=== PATIENT | female | born 1955 | race Caucasian/White ===

== ENCOUNTER → 2016-10-26 | Outpatient (CLI) | payer BC ==
--- NOTE | 2016-10-26 08:53 | MM ---
Reason for exam: follow-up at short interval from prior study. Last mammogram was performed 6 months ago. History: Patient is postmenopausal and is nulliparous. Benign MG stereo VAD BX LT of the left breast, May 08, 2016. Excisional biopsy of the right breast. Physical Findings: Nurse did not find any significant physical abnormalities on exam. MG Diagnostic Mammo LT w CAD CC, MLO, and ML view(s) were taken of the left breast. Prior study comparison: April 28, 2016, left breast MG work up mamm w CAD LT. April 25, 2016, bilateral MG screening mammo w CAD. April 09, 2015, bilateral MG screening mammo w CAD. The breast tissue is heterogeneously dense. This may lower the sensitivity of mammography. Finding: There are typically benign dystrophic, round calcifications in the left breast. Previous mammotome biopsy in the left breast x 2. There is no discrete abnormality. These results were verbally communicated with the patient and result sheet given to the patient on 10/26/16. ASSESSMENT: Benign, BI-RAD 2 RECOMMENDATION: Return to routine screening mammogram schedule for both breasts. Back on schedule.
== END | disposition home or self-care (01) ==
LOC: RADMAMWWP 08:12
PROVIDERS: ATTEND Surgery
DX: R92.8 Other abnormal and inconclusive findings on diagnostic imaging of breast (principal)

== ENCOUNTER → 2017-05-02 | Outpatient (CLI) | payer BC ==
--- NOTE | 2017-05-03 13:34 | MM ---
Reason for exam: screening (asymptomatic). Last mammogram was performed 6 months ago. History: Patient is postmenopausal and is nulliparous. Benign MG stereo VAD BX LT of the left breast, May 08, 2016. Excisional biopsy of the right breast. Physical Findings: A clinical breast exam by your physician is recommended on an annual basis and results should be correlated with mammographic findings. MG Screening Mammo w CAD Bilateral CC and MLO view(s) were taken. Prior study comparison: October 26, 2016, left breast MG diagnostic mammo LT w CAD. April 28, 2016, left breast MG work up mamm w CAD LT. April 25, 2016, bilateral MG screening mammo w CAD. The breast tissue is extremely dense which could obscure a lesion on mammography. No suspicious abnormality. Post biopsy change central slightly lateral left breast. No significant changes when compared with prior studies. ASSESSMENT: Benign, BI-RAD 2 RECOMMENDATION: Routine screening mammogram of both breasts in 1 year.
== END | disposition home or self-care (01) ==
LOC: RADMAMWWP 08:11
PROVIDERS: ATTEND Family Medicine
DX: Z12.31 Encounter for screening mammogram for malignant neoplasm of breast (principal)

== ENCOUNTER → 2018-05-14 | Outpatient (CLI) | payer BC ==
--- NOTE | 2018-05-15 13:05 | MM ---
Reason for exam: screening (asymptomatic). Last mammogram was performed 1 year ago. History: Patient is postmenopausal and is nulliparous. Benign MG stereo VAD BX LT of the left breast, May 08, 2016. Excisional biopsy of the right breast. Physical Findings: A clinical breast exam by your physician is recommended on an annual basis and results should be correlated with mammographic findings. MG Screening Mammo w CAD Bilateral CC and MLO view(s) were taken. Prior study comparison: May 02, 2017, bilateral MG screening mammo w CAD. October 26, 2016, left breast MG diagnostic mammo LT w CAD. The breast tissue is heterogeneously dense. This may lower the sensitivity of mammography. Stable benign calcifications. There is no discrete abnormality. No significant changes when compared with prior studies. ASSESSMENT: Benign, BI-RAD 2 RECOMMENDATION: Routine screening mammogram of both breasts in 1 year.
== END | disposition home or self-care (01) ==
LOC: RADMAMWWP 08:11
PROVIDERS: ATTEND Family Medicine
DX: Z12.31 Encounter for screening mammogram for malignant neoplasm of breast (principal)
CPT/HCPCS: 77067

== ENCOUNTER → 2019-05-21 | Outpatient (CLI) | payer BC ==
--- NOTE | 2019-05-21 09:24 | BD ---
EXAMINATION TYPE: Axial Bone Density DATE OF EXAM: 05/21/2019 COMPARISON: 2016 CLINICAL HISTORY: M 85.0 Height: 5 FT 2 1/4 IN Weight: 136 FRAX RISK QUESTIONS: Secondary Osteoporosis: Rheumatoid Arthritis: YES Current Tobacco Use: YES RISK FACTORS HISTORY OF: Active: YES Postmenopausal woman: AGE 53 MEDICATIONS: Additional Medications: CALTRATE, TOLTERODINE, ASPIRIN, LUNESTA, Additional History: EXAM MEASUREMENTS: Bone mineral densitometry was performed using the [email or web address] System. Bone mineral density as measured about the Lumbar spine is: ----- L1-L4(G/cm2): 1.253 T Score Values are as follows: ----- L2: -0.4 ----- L3: 1.3 ----- L4: 1.3 ----- L1-L4: 0.6 Bone mineral density has: INCREASED 7.1 % since study of: 2016 Bone mineral density about the R hip (g/cm2): 0.934 Bone mineral density about the L hip (g/cm2): 0.987 T Score values are as follows: -----R Neck: -0.7 -----L Neck: -0.4 -----R Total: -0.5 -----L Total: -0.3 Bone mineral density has: DECREASED -4.6 % since study of: 2016 IMPRESSION: Normal (Values between +1 and -1 indicate normal bone mass). Consider repeating this study in 5 year s or sooner if there is some new clinical indication. NOTE: T-SCORE=SD OF THE YOUNG ADULT MEAN.
--- NOTE | 2019-05-22 14:09 | MM ---
Reason for exam: screening (asymptomatic). Last mammogram was performed 1 year ago. History: Patient is postmenopausal and is nulliparous. Benign MG stereo VAD BX LT of the left breast, May 08, 2016. Excisional biopsy of the right breast. Physical Findings: A clinical breast exam by your physician is recommended on an annual basis and results should be correlated with mammographic findings. MG Screening Mammo w CAD Bilateral CC and MLO view(s) were taken. Prior study comparison: May 14, 2018, bilateral MG screening mammo w CAD. May 02, 2017, bilateral MG screening mammo w CAD. The breast tissue is heterogeneously dense. This may lower the sensitivity of mammography. Benign appearing bilateral calcifications. Right lateral asymmetry 6cm from nipple. Left biopsy markers noted. ASSESSMENT: Incomplete: need additional imaging evaluation, BI-RAD 0 RECOMMENDATION: Special view mammogram of the right breast. If lesion persists on supplemental views, image directed ultrasound is recommended. [facility] will attempt to contact patient to return for supplemental views and ultrasound if indicated.
== END | disposition home or self-care (01) ==
LOC: RADMAMWWP 08:20
PROVIDERS: ATTEND Family Medicine
DX: Z12.31 Encounter for screening mammogram for malignant neoplasm of breast (principal); M85.80 Other specified disorders of bone density and structure, unspecified site
CPT/HCPCS: 77067; 77080

== ENCOUNTER → 2019-06-09 | Outpatient (CLI) | payer BC ==
--- NOTE | 2019-06-09 09:57 | MM ---
Reason for exam: additional evaluation requested from abnormal screening. Last mammogram was performed 1 month ago. History: Patient is postmenopausal and is nulliparous. Benign MG stereo VAD BX LT of the left breast, May 08, 2016. Excisional biopsy of the right breast, 1991. Physical Findings: Nurse did not find any significant physical abnormalities on exam. MG Work Up Mamm w CAD RT Spot compression CC and LM view(s) were taken of the right breast. Prior study comparison: May 21, 2019, bilateral MG screening mammo w CAD. May 14, 2018, bilateral MG screening mammo w CAD. The breast tissue is heterogeneously dense. This may lower the sensitivity of mammography. Asymmetric density laterally at a middle depth incompletely disperses. Ultrasound recommended. These results were verbally communicated with the patient and result sheet given to the patient on 06/09/19. ASSESSMENT: Incomplete: need additional imaging evaluation, BI-RAD 0 RECOMMENDATION: Ultrasound of the right breast. (5-11 o'clock)
--- NOTE | 2019-06-09 09:58 | USB ---
Reason for exam: additional evaluation requested from abnormal screening. History: Patient is postmenopausal and is nulliparous. Benign MG stereo VAD BX LT of the left breast, May 08, 2016. Excisional biopsy of the right breast, 1991. US Breast Workup Limited RT Right limited breast ultrasound including focal area of concern, retroareolar and axilla demonstrates a 0.4 x 0.2 x 0.3cm oval, cystic, benign lesion at 6 o'clock. Scanned 5-11 o'clock for the lateral asymmetric density. Dense tissues are noted. These results were verbally communicated with the patient and result sheet given to the patient on 06/09/19. ASSESSMENT: Probably benign, BI-RAD 3 RECOMMENDATION: Follow-up diagnostic mammogram of the right breast in 6 months.
== END | disposition home or self-care (01) ==
LOC: RADMAMWWP 08:35
PROVIDERS: ATTEND Family Medicine
DX: R92.8 Other abnormal and inconclusive findings on diagnostic imaging of breast (principal)
CPT/HCPCS: 77065

== ENCOUNTER → 2019-12-24 | Outpatient (CLI) | payer BC ==
--- NOTE | 2019-12-24 11:24 | FL ---
EXAMINATION TYPE: FL UGI DATE OF EXAM: 12/24/2019 COMPARISON: NONE HISTORY: Epigastric pain. Significant Weight loss over last 2 months. Episodes of nausea and vomitin g. TECHNIQUE: A double contrast UGI study is performed. A total of 0.57 minutes of fluoroscopic time. 7 6 spot images are saved. 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 Underlying scol iosis is present. Exam noted suboptimal as patient has poor tolerance of air crystals causing retching causing suboptim al gaseous distention. Patient also had poor tolerance of contrast. The esophagus shows satisfactory motility and emptying into the stomach. Small sliding-type hiatal hernia. No diverticulum or signific ant focal stricture. Suboptimal evaluation of stomach with mild to moderate diffuse gastric fold prominence. No focal ulce r. Occasional gastroesophageal reflux was seen during real time performance of this study up to dista l one third of the esophagus.. The duodenal bulb, sweep, and proximal small bowel loops are unremarkable. IMPRESSION: Suboptimal study. Mild/moderate diffuse gastritis. Small sliding hiatal hernia with occa sional gastroesophageal reflux.
--- NOTE | 2019-12-24 11:33 | US ---
EXAMINATION TYPE: US abdomen complete DATE OF EXAM: 12/24/2019 COMPARISON: CLINICAL HISTORY: R10.13 EPIGASTRIC PAIN. patient states having unexplained weight loss. EXAM MEASUREMENTS: Liver Length: 15.3 cm Gallbladder Wall: 1.0 cm CBD: 0.4 cm Spleen: 15.3 cm Right Kidney: 11.4 x 4.1 x 4.6 cm Left Kidney: 10.7 x 3.6 x 3.8 cm Pancreas: Appears echogenic Liver: wnl Gallbladder: Wall thickening visualized Evidence for sonographic Alatorre's sign: neg CBD: wnl Spleen: Enlarged Right Kidney: No hydronephrosis or masses seen Left Kidney: Lower pole cortical cystic appearing lesion = 0.7 x 0.8 cm Upper IVC: wnl Abd Aorta: No AAA visualized Two midline structures visualized. 1- superior to pancreatic head, vascular hypoechoic lesion = 3.9 x 2.4 x 0.9 cm. 2- Midline vascular hypoechoic lesion superior to aorta = 5.3 x 1.7 x 2.3 cm The liver is homogenous. The intrahepatic portion of the IVC and proximal abdominal aorta are within normal limits. There is no evidence of shadowing mobile cholelithiasis. Abnormal gallbladder wall t hickening up to 10 mm. Near gallbladder fossa there is vascular lobulated hypoechoic mass measuring 5 .3 cm long axis worrisome for adenopathy. Common bile duct is unremarkable. The visualized portions of the pancreas are homogenous. Suspicious oval hypoechoic lesion near pancreatic head could reflect abnormal adenopathy. The spleen is enlarged at 15.3 cm long axis. Kidneys are symmetric and free of hydronephrosis. No renal lesions are seen. IMPRESSION: Splenomegaly is present. Suspicious masses possible abdominal adenopathy. Abnormal gallbl adder with wall thickening. Gallbladder carcinoma not excluded. Advise further investigation with con trast-enhanced CT abdomen and pelvis study. Advise surgical referral.
== END | disposition home or self-care (01) ==
LOC: RADUSWWP 09:14
PROVIDERS: ATTEND Family Medicine
DX: K29.70 Gastritis, unspecified, without bleeding (principal); K44.9 Diaphragmatic hernia without obstruction or gangrene; R16.1 Splenomegaly, not elsewhere classified; K82.8 Other specified diseases of gallbladder
CPT/HCPCS: 74240; 76700

== ENCOUNTER → 2019-12-26 | Outpatient (CLI) | payer BC ==
--- NOTE | 2019-12-26 12:45 | CT ---
EXAMINATION TYPE: CT abdomen pelvis w con DATE OF EXAM: 12/26/2019 HISTORY: Abdominal mass CT DLP: 391.00mGycm Automated Exposure Control for Dose Reduction was Utilized. CONTRAST: CT scan of the abdomen and pelvis is performed with IV Contrast, patient injected with 100 ml mL of I sovue 300. COMPARISON: Abdominal ultrasound dated 12/24/2019 FINDINGS: LUNG BASES: Reticular fibrotic changes are seen at the lung bases that are peripherally oriented, rig ht greater than left. Spiculated density in the lingula is contiguous with the pleural surface on cor onal images and appears as atelectasis. LIVER/GB: There is slight decreased attenuation of the liver in comparison to that of the spleen wayne jareth this is not meet criteria for hepatic steatosis. The liver is prominent in size overall. Peripher ally radiopaque oval structure appears as a centrally hypoattenuating calculus in the gallbladder how ever this does appear elongated towards the gallbladder neck and cystic duct and in combination with the prior ultrasound findings and less likely consideration is for partially contracted gallbladder a nd severe pericholecystic fluid. Correlation with serum laboratory values, surgical consultation is s uggested on the prior ultrasound, and correlation with physical exam is recommended. HIDA scan could also be considered. PANCREAS: No significant abnormality is seen. SPLEEN: The spleen is enlarged measuring 15.0 cm in craniocaudal dimension. There are a few benign ca lcified granulomas within the splenic parenchyma and a hypoattenuated too small to accurately charact erize lesion on series 3 image 28. ADRENALS: No significant abnormality is seen. KIDNEYS: The kidneys enhance and excrete symmetrically without hydronephrosis. Delayed images demonst rate a left renal 1.1 cm lesion that is longer than wide and too small to characterize given ovoid mo rphology. On the abdominal ultrasound of 48 appeared cystic. Incidentally noted retroaortic left nallely l vein. BOWEL: High density seen within numerous sigmoid diverticula and collected within the appendix as wel l as the cecum creating spray artifact from the recent upper GI. LYMPH NODES: Abnormal adenopathy is seen throughout the abdomen. The largest lymph nodes are periaort ic and portacaval measuring up to 1.5 and 1.7 cm in short axis respectively. These are best appreciat ed on coronal image 31 in the periaortic region. Adenopathy continues along the retroperitoneum into the high pelvis with abnormal lymph nodes surrounding the common iliac arteries on image 47. No abnor mal superficial inguinal adenopathy. OSSEOUS STRUCTURES: Indeterminant right femoral neck lesion measures 1.0 cm. Mild to moderate degener ative change of the spine and right hip. Mild degenerative change of the left hip. IMPRESSION: 1.Compilation of findings that should be considered lymphoma until proven otherwise. Appropriate labo ratory testing and consideration for percutaneous biopsy are recommended. 2. Atypical appearance of the gallbladder. Described above findings could represent simply cholelithi asis or severe pericholecystic fluid. No inflammatory change seen in the right upper quadrant. Again surgical consultation is recommended. If clinical findings are equivocal HIDA scan would be recommend ed. Findings #1 and #[address] Lopes on 12/26/[address] Jackson at 1239pm. 3. Indeterminate right femoral sclerotic lesion measuring 1.0 cm.
== END | disposition home or self-care (01) ==
LOC: RADCTMAIN 09:51
PROVIDERS: ATTEND Family Medicine
DX: R19.00 Intra-abdominal and pelvic swelling, mass and lump, unspecified site (principal)
CPT/HCPCS: 74177; Q9967

== ENCOUNTER → 2020-01-06 | Outpatient (CLI) | payer BC ==
--- NOTE | 2020-01-06 09:08 | CT ---
EXAMINATION TYPE: CT chest w con DATE OF EXAM: 01/06/2020 COMPARISON: None HISTORY: enlarged lymphnodes, abn CT abd pelvis CT DLP: 148.1 mGycm, Automated exposure control for dose reduction was used. CONTRAST: Performed injected with 100 mL of Isovue 300. TECHNIQUE: Axial images were obtained at 5 mm thick sections. Reconstructed images are reviewed on [facility] computer in the coronal plane. FINDINGS: Portion of the thyroid visualized is normal. There is a 0.3 cm calcification medial left apex compatible small calcified granuloma. Additional 0.3 cm transverse dimension calcification is in the right perihilar region. There is peripheral based ca lcification measuring 0.2 cm in the superior segment right lower lobe. Some infiltrate is at the ling ular base. No enlarged mediastinal or hilar adenopathy is evident. There are scattered small shotty lymph node s present in the pretracheal space. Some calcified lymphadenopathies in the subcarinal region and pre tracheal space. The ascending aorta diameter at the level of the main pulmonary artery is 3.5 cm. Th e main pulmonary artery diameter at the bifurcation is 2.[address] sections are obtained through the upper abdomen. Some mild fatty infiltration liver may be present. A 0.4 cm retrocrural lymph node is present. There may be some adenopathy within the periaor tic and retrocaval regions only partially visualized on [id number]. No suspicious axillary adenopa thy is evident. There are small axillary nodes present bilaterally. IMPRESSIONS: 1. There are scattered small amount bulge present although no enlarged lymphadenopathy within the pao st is evident. Enlarged lymphadenopathy remains present within the [id number] within the upper abd omen, please see 12/26/2019 CT abdomen report. 2. Infiltrate within the lingular base. 3. Calcified lymphadenopathy within the mediastinum as well as a few small calcified nodules within t lung vasquez discussed above
== END | disposition home or self-care (01) ==
LOC: RADCTMAIN 07:56
PROVIDERS: ATTEND Internal Medicine Hematology & Oncology
DX: R91.8 Other nonspecific abnormal finding of lung field (principal); R91.1 Solitary pulmonary nodule; R59.0 Localized enlarged lymph nodes
CPT/HCPCS: 71260; Q9967

== ENCOUNTER → 2020-01-09 | Outpatient (CLI) | payer BC ==
--- NOTE | 2020-01-12 11:40 | PE ---
EXAMINATION TYPE: PET CT fusion skull to thigh DATE OF EXAM: 01/09/2020 COMPARISON: CT chest 01/06/2020 Prior PET/CT: None HISTORY: Solitary pulmonary nodule, lymphadenopathy. TECHNIQUE: Following the intravenous administration of 12.08 mCi of F-18 FDG, whole body images are performed from the skull base to the midthigh. Images are reviewed on the computer in the coronal, a xial, and sagittal planes. Reconstructed rotating images are created on independent workstation and reviewed on the computer. A localization and attenuation correction CT is performed in conjunction with the PET scan. DLP: 232.10 mGycm SCAN: Initial Blood glucose: 125 mg/dL Average Mediastinum SUV: 0.84 Average Liver SUV: 2.12 FINDINGS: NECK: There is focal radiotracer accumulation within the prevertebral space near the level of the to edison tubarius. This has an SUV value of 5.84. Direct visualization is recommended posterior nasopharyn x. There is focal radiotracer accumulation within the left and right neck, head image 35. On the right t his has an SUV value 1.36 and on the left this has an SUV value 1.18. This could be some laboratory c hange. There are scattered additional punctate areas of uptake, example images 41, left 1.32 SUV, rig ht 1.84 and slightly more posterior lateral 1.33. These are intermediate and could be inflammatory ch lupe. There is a focus of radiotracer accumulation within the left supraclavicular region with an SUV value of 3.57 suspicious for metastatic lymph node. Just anterior and slightly more inferior, image 55, is a focus of radiotracer measuring 1.64. Posterior lateral to the left lobe of the thyroid are 2 foci of radiotracer accumulation measuring 4.12 and 5.5, image 62. This is suspicious for small metastatic lymph nodes. There is an additional suspicious left axillary lymph node measuring 5.36, image 62. Sm all posterior lateral focus of radiotracer may be a supraclavicular node on the right, image 63, SUV value 1.49. An additional left axillary lymph node is present image 64 with an SUV value of 7.52. THORAX: There is intense radiotracer accumulation in the low left supraclavicular region just lateral to the thyroid with an SUV value of 7.95. An inferior left axillary lymph node on image 65 has an NG V value of 3.87. Soft tissue nodule in the retrocrural pectoralis region image 66 has an SUV value of 2 9. There is a superior mediastinal focus of radiotracer right lateral to the esophagus and posterior to the trachea, image 66 with an SUV value of 3.23. There is an additional focus of radiotracer accumula tion within the left chest wall image 68 measuring 7.39. At least 2 more focal radiotracer accumulati on within the superior mediastinum, image 72 with SUV values of 5.12 normal anterior 4.57. Small focu s of radiotracer accumulation within the right axillary region image 72 has an SUV value 1.6. A pretr acheal lymph node has an SUV value of 5.03, image 78. Additional pretracheal lymphadenopathy is prese nt above the level the dylon, image 91 with an SUV value of 8.3. A right hilar lymph node image 94 m easures 4.86. Subcarinal small lymph node is hyperintense with radiotracer measuring 2.88. Small more subtle left hilar lymph nodes measuring 1.17 and more posterior 1.74 image 95 are present. Small foc us of radiotracer may be in the right suprahilar region image 95 measuring 1.69. Infrahilar uptake is present bilaterally, image 101 SUV values are low measuring 0.6, 821.56 on the right and 1.19- 2.07 on the left. Posterior to the descending thoracic aorta is a focus of radiotracer accumulation measur ing 2.16 image 101. There is a larger focus of radiotracer between the descending thoracic aorta in t he vertebral body posterior to the descending thoracic aorta, image 108 with an SUV value of 9.95. Th ere is a focus of radiotracer accumulation within the posterior mediastinal space, image 115 just ant erior to the vertebral body with an SUV value of 7.43. Please also see osseous structures thorax ABDOMEN: There is increased uptake within the spleen diffusely. This may be slightly greater along th e anterior aspect. Abnormal uptake is within retrocrural lymphadenopathy, image 138 with SUV value of 5.35 on the left and 6.29 on the right. Additional periaortic adenopathy within the abdomen has incr eased uptake, image 146 SUV value 6.48 and 5.39. Some retrocaval adenopathy has an SUV value of 5.3. Periaortic adenopathy extends to the bifurcation into the proximal iliac chains. On the right this re radha prominent and somewhat full, image 181 SUV 15.5 on the left this measures 5.37. PELVIS: Proximal iliac chain adenopathy is present, image 187 SUV value of 3.77 far left and 2.93 on the right. More medial uptake is also present within SUV value of 3.2 on the left and 2.69 on the rig ht. Some mild left inguinal uptake may be present measuring 1.15, image 218. There is likely some contamination below the vaginal vault. OSSEOUS STRUCTURES: Within the thorax there are multiple areas of mild increased uptake within ribs a nd sternum suspicious for osseous metastasis. Uptake values however intermediate below SUV [address] LOCALIZATION [address]: Some free fluid is within the pelvis. Significant enlarged lymphadenopathy is not id entified corresponding to the areas of uptake. A few enlarged lymph nodes evident are hyperintense wi th radiotracer. Note is made of cholelithiasis. COMPARISON: Upper abdominal lymphadenopathy appears similar to the comparison. IMPRESSION: 1. Extensive radiotracer accumulation through the areas of lymphadenopathy. Major areas would include Waldeyer's ring in the posterior nasopharynx, bilateral neck greater in the supraclavicular regions, left axillary region, Mediastinum, right paraspinal region lower thoracic area. Extensive adenopathy through the periaortic and retrocaval regions. Increased uptake within the spleen greater in the ant erior aspect. Scattered lymphadenopathy in the pelvis greater in the iliac chain regions proximally. There are additional areas of punctate increased activity within small foci which may be early lympho ma within nonenlarged lymph nodes. These tend to be more intermediate in signal. Some mild increased activity is also present diffusely within the thoracic osseous structures. Lymphoma is favored within the differential.
== END ==
LOC: RADPETMAIN 14:41
PROVIDERS: ATTEND Internal Medicine Hematology & Oncology
DX: R59.0 Localized enlarged lymph nodes (principal); R91.1 Solitary pulmonary nodule
CPT/HCPCS: 78815; A9552

== ENCOUNTER → 2020-01-22 | Outpatient (CLI) | payer MEDICARE ==
--- NOTE | 2020-01-22 12:37 | ECHOF ---
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 This was a technically adequate study. The left ventricular size is normal. Left ventricular wall thickness is normal. Overall left vent ricular systolic function is normal with, an EF between 55 - 60 %. The right ventricle is normal in size. Normal LA size by volume 22+/-6 ml/m2. The right atrium is normal in size. Interatrial and interventricular septum intact. There is mild aortic valve sclerosis. The mitral valve leaflets are mildly thickened. Mild mitral annular calcification present. There is trace mitral regurgitation. Mild tricuspid regurgitation present. Right ventricular systolic pressure is normal at < 35 mmHg. The pulmonic valve was not well visualized. The aortic root size is normal. Normal inferior vena cava with normal inspiratory collapse consistent with estimated right atrial pre ssure of 5 mmHg. There is no pericardial effusion. CONCLUSIONS -------- 1. Resting tachycardia (HR>100bpm). 2. This was a technically adequate study. 3. The left ventricular size is normal. 4. Left ventricular wall thickness is normal. 5. Overall left ventricular systolic function is normal with, an EF between 55 - 60 %. 6. The right ventricle is normal in size. 7. Normal LA size by volume 22+/-6 ml/m2. 8. The right atrium is normal in size. 9. Interatrial and interventricular septum intact. 10. There is mild aortic valve sclerosis. 11. The mitral valve leaflets are mildly thickened. 12. Mild mitral annular calcification present. 13. There is trace mitral regurgitation. 14. Mild tricuspid regurgitation present. 15. Right ventricular systolic pressure is normal at < 35 mmHg. 16. The pulmonic valve was not well visualized. 17. The aortic root size is normal. 18. Normal inferior vena cava with normal inspiratory collapse consistent with estimated right atrial pressure of 5 mmHg. 19. There is no pericardial effusion. BUFFING LINE SET UP WORKER: Jessica García RDCS
== END | disposition home or self-care (01) ==
LOC: RADECHMAIN 11:21
PROVIDERS: ATTEND Internal Medicine Hematology & Oncology
DX: R00.0 Tachycardia, unspecified (principal); I35.8 Other nonrheumatic aortic valve disorders; I07.1 Rheumatic tricuspid insufficiency; C96.Z Other specified malignant neoplasms of lymphoid, hematopoietic and related tissue
CPT/HCPCS: 93306

== ENCOUNTER → 2020-01-23 | Day surgery (SDC) | payer BC, MEDICARE ==
[~2020-01-23] MED LIST: LIDOCAINE 1% INJ 10MG/ML (20 ML MDV) SQ ONE
[2020-01-23 13:04] VITALS: BP 83/57; PULSE 99; RESP 20; TEMP 97.4
--- NOTE | 2020-01-23 13:57 | IR ---
PICC LINE PLACEMENT: HISTORY: Infection requiring long-term antibiotic therapy PROCEDURE: Ultrasound and fluoroscopic guidance of PICC line placement. COMPLICATIONS: None ANESTHESIA: 1. 1% Lidocaine locally. FINDINGS/TECHNIQUE: The procedure was explained to the patient. The risks, complications, benefits and alternatives were discussed and any questions were answered. Informed consent was obtained. The patient was placed supine on the fluoroscopic table and prepped and draped in the usual sterile [facility] ion. Utilizing a 21 gauge needle and sonographic and fluoroscopic guidance, access in the vein was achieved and there is placement of a 0.018 guidewire. The vein is patent. A 4-F sheath was placed o jareth the guidewire. The guidewire and dilator were removed and a 4-F. PICC line was placed through th e sheath with the tip at the level of the SVC. The sheath was removed, the catheter was flushed and sutured into position. The patient was stable throughout the procedure and remained stable upon disc harge from the Department of Radiology. The vein puncture was patent under ultrasound. A noland scale image was obtained to document patency of the vein punctured. All elements of the maximal barrier technique were utilized. FLUOROSCOPY TIME: 0.3 minutes and one image submitted IMPRESSION: Successful PICC line placement under ultrasound and fluoroscopic guidance.
== END ==
LOC: CATHCVL 12:25
PROVIDERS: ATTEND Radiology Diagnostic Radiology
DX: C96.Z Other specified malignant neoplasms of lymphoid, hematopoietic and related tissue (principal); R59.0 Localized enlarged lymph nodes; M12.9 Arthropathy, unspecified; Z80.6 Family history of leukemia; F17.210 Nicotine dependence, cigarettes, uncomplicated; Z98.890 Other specified postprocedural states; Z79.52 Long term (current) use of systemic steroids; Z79.899 Other long term (current) drug therapy
CPT/HCPCS: 36573; C1751; C1769; J2001

== ENCOUNTER 2020-02-01 07:11 | Inpatient (IN) | payer MEDICARE ==
[2020-02-01] MEDS ORDERED: SODIUM CHLORIDE 0.9% 1,000 ML IV STA (07:36)
[2020-02-01] MEDS ORDERED: SODIUM CHLORIDE 0.9% 500 ML 500 ML IV STA (07:36)
[2020-02-01] MEDS ORDERED: fentaNYL (PF) 50 MCG/ML 2 ML AMP IVP STA (07:41)
--- NOTE | 2020-02-01 07:54 | ED ---
Abdominal Pain HPI - General Source: patient, RN notes reviewed Mode of arrival: wheelchair Limitations: no limitations <Elvis Calzada - Last Filed: 02/01/20 09:38> <Richie Lawler - Last Filed: 02/01/20 09:53> - General Chief Complaint: Abdominal Pain Stated Complaint: Back/Abd Pain Time Seen by Provider: 02/01/20 07:28 - History of Present Illness Initial Comments: This a 64-year-old female presents emergency Department chief complaint abdominal, back pain. Patient states that symptoms started 24 hours ago. P edilberto has been taking Tylenol Motrin for the pain. Patient recently was diagnosed with lymphoma. Patient is currently seen Dr. Nagel, recently had a PICC line placed her left arm. She states that she's never had pain like this before. She states she is just been tolerating discomfort. She states it hurts in her back and radiates all around. She has no anterior chest pain. Patient denies any known fever chills headache or dizziness. Patient states pain is better when she lays flat. Patient states she has not normal medication she is currently taking. She has no dysuria no hematuria denies any melena or hematochezia. Denies any bowel bladder incontinence or retention. Patient has no known cardiac or aortic disease. (Elvis Calzada) - Related Data Home Medications Medication Instructions Recorded Confirmed Eszopiclone [Lunesta] 3 mg PO HS 04/12/15 01/23/20 Multivit,Ca,Min/D3/Herbal #181 1,000 unit PO DAILY 04/12/15 01/23/20 [Estroven (Day or Night)] Tolterodine ER [Detrol LA] 2 mg PO BID 04/12/15 01/23/20 Allergies Allergy/AdvReac Type Severity Reaction Status Date / Time No Known Allergies Allergy Verified 02/01/20 07:25 Review of Systems ROS Other: All systems not noted in ROS Statement are negative. <Elvis Calzada - Last Filed: 02/01/20 09:38> ROS Other: All systems not noted in ROS Statement are negative. <Richie Lawler - Last Filed: 02/01/20 09:53> ROS Statement: Those systems with pertinent positive or pertinent negative responses have been documented in the HPI. Past Medical History Additional Past Medical History / Comment(s): HX URINARY INCONTINENCE, HX OF POLYP, NON-HODGKINS LYMPHOMA History of Any Multi-Drug Resistant Organisms: None Reported Past Surgical History: Breast Surgery, Orthopedic Surgery Additional Past Surgical History / Comment(s): RT ROTATOR CUFF, BREAST FATTY TISSUE AND MARKER (UNSURE WHICH SIDE) Past Anesthesia/Blood Transfusion Reactions: No Reported Reaction Past Psychological History: No Psychological Hx Reported Smoking Status: Current every day smoker <Elvsi Calzada - Last Filed: 02/01/20 09:38> General Exam Limitations: no limitations General appearance: alert, in distress Eye exam: Present: normal appearance, PERRL, EOMI. Absent: scleral icterus, conjunctival injection, periorbital swelling ENT exam: Present: normal exam, normal oropharynx, mucous membranes moist Neck exam: Present: normal inspection, full ROM. Absent: tenderness, m eningismus, lymphadenopathy Respiratory exam: Present: normal lung sounds bilaterally. Absent: respiratory distress, wheezes, rales, rhonchi, stridor Cardiovascular Exam: Present: normal rhythm, tachycardia, normal heart sounds. Absent: systolic murmur, diastolic murmur, rubs, gallop, clicks GI/Abdominal exam: Present: soft, tenderness (Moderate diffuse there is no localized tenderness patient went to pain diffusely would with any palpation), normal bowel sounds. Absent: distended, guarding, rebound, rigid Back exam: Present: tenderness, paraspinal tenderness, vertebral tenderness. Absent: CVA tenderness (R), CVA tenderness (L) Neurological exam: Present: alert, oriented X3, CN II-XII intact Skin exam: Present: warm, dry, intact, normal color. Absent: rash <Elvis Calzada - Last Filed: 02/01/20 09:38> Course <Elvis Calzada - Last Filed: 02/01/20 09:38> Vital Signs 02/01/20 02/01/20 02/01/20 07:19 07:59 08:02 Temperature 96.4 F L Pulse Rate 104 H 98 Respiratory 20 18 Rate Blood Pressure 73/48 81/56 O2 Sat by Pulse 97 88 L 93 L Oximetry - Reevaluation(s) Reevaluation #1: 02/01/20 07:54 Patient's vitals were reviewed lab ordered, fluid bolus was ordered will monitor blood pressure every 5 minutes (Elvis Calzada) Reevaluation #2: 02/01/20 09:23 Dr. lawler did evaluate the patient case discussed with Dr. Galaviz, Dr. Ya, Dr. Doll, Dr. Parrish (Elvis Calzada) Procedures - Sepsis Sepsis Focused Exam #1 Time Sepsis Criteria Met: 09:00 Sepsis Focused Exam Date: 02/01/20 Sepsis Focused Exam Time: 09:15 Sepsis Focused Exam Complete: Yes Vital Signs & RN Notes Reviewed: Yes Capillary Refill: < 2 Seconds: Fingers, Toes Peripheral Pulses: Normal: Radial (R), Radial (L), Posterior Tibialis (R), Posterior Tibialis (L), Dorsalis Pedis (R), Dorsalis Pedis (L) Skin Color: Normal for Patient Respiratory Exam: decreased breath sounds Cardiovascular Exam: regular rate, normal rhythm <Elvis Calzada - Last Filed: 02/01/20 09:38> - Sepsis Sepsis Focused Exam #2 Time Sepsis Criteria Met: 09:00 Sepsis Focused Exam Date: 02/01/20 Sepsis Focused Exam Time: 09:37 Sepsis Focused Exam Complete: Yes Vital Signs & RN Notes Reviewed: Yes Capillary Refill: < 2 Seconds: Fingers, Toes Peripheral Pulses: Normal: Radial (R), Radial (L) Skin Color: Normal for Patient Respiratory Exam: normal lung sounds Cardiovascular Exam: regular rate, normal rhythm <Richie Lawler - Last Filed: 02/01/20 09:53> Medical Decision Making - Lab Data Result diagrams: 02/01/20 07:42 02/01/20 07:42 <Elvis Calzada - Last Filed: 02/01/20 09:38> - Lab Data Result diagrams: 02/01/20 07:42 02/01/20 07:42 <Richie Lawler - Last Filed: 02/01/20 09:53> - Medical Decision Making Patient was admitted ICU with consults to surgery, oncology. Patient found to have sepsis, hypertension, anemia, thrombocytopenia, transaminitis, non- Hodgkin's lymphoma. Patient is started on IV fluids, pressors, antibiotics. (Elvis Calzada) Patient was reexamined and reevaluated by myself, Dr. Lawler. Patient and family updated on results and plan. Results reviewed. Labs and CT scans reviewed. Abdomen has moderate diffuse tenderness. Case was discussed in detail with Dr. Doll, who will consult for Dr. Robles. He does request Zosyn and vancomycin. This has been done. Case also discussed with Dr. Ya who will consult for critical care. He does request the a fed to midline and this was ordered. He also requested adding uric acid and pro-calcitonin levels. Case also discussed with Dr. Parrish, who will review computed tomography scan of the abdomen pelvis. She'll also consult. Patient has previously been seen by Dr. Joyce. Dr. Galaviz has also been paged for admission covering for Dr. Lopes. Case was discussed with Dr. Galaviz, who will admit. (Richie Lawler) - Lab Data Lab Results 02/01/20 02/01/20 02/01/20 Range/Units 07:42 07:42 07:42 WBC 3.5 L (3.8-10.6) k/uL RBC 2.88 L (3.80-5.40) m/uL Hgb 8.1 L (11.4-16.0) gm/dL Hct 24.8 L (34.0-46.0) % MCV 86.0 (80.0-100.0) fL MCH 28.0 (25.0-35.0) pg MCHC 32.5 (31.0-37.0) g/dL RDW 21.7 H (11.5-15.5) % Plt Count 23 L D (150-450) k/uL Neutrophils % 92 % Lymphocytes % 1 % Monocytes % 3 % Eosinophils % 1 % Basophils % 1 % Neutrophils # 3.2 (1.3-7.7) k/uL Lymphocytes # 0.0 L (1.0-4.8) k/uL Monocytes # 0.1 (0-1.0) k/uL Eosinophils # 0.0 (0-0.7) k/uL Basophils # 0.0 (0-0.2) k/uL Manual Slide Review Performed Anisocytosis Moderate Microcytosis Slight PT 10.3 (9.0-12.0) sec INR 1.0 (<1.2) APTT 26.2 (22.0-30.0) sec VBG pH (7.31-7.41) VBG pCO2 (37-51) mmHg VBG HCO3 (24-28) mmol/L Sodium 123 L (137-145) mmol/L Potassium 4.3 (3.5-5.1) mmol/L Chloride 92 L (98-107) mmol/L Carbon Dioxide 24 (22-30) mmol/L Anion Gap 7 mmol/L BUN 24 H (7-17) mg/dL Creatinine 0.57 (0.52-1.04) mg/dL Est GFR (CKD-EPI)AfAm >90 (>60 ml/min/1.73 sqM) Est GFR (CKD-EPI)NonAf >90 (>60 ml/min/1.73 sqM) Glucose 105 H (74-99) mg/dL Plasma Lactic Acid Hany (0.7-2.0) mmol/L Calcium 7.2 L (8.4-10.2) mg/dL Total Bilirubin 3.4 H (0.2-1.3) mg/dL AST 130 H (14-36) U/L ALT 73 H (4-34) U/L Alkaline Phosphatase 431 H (38-126) U/L Lactate Dehydrogenase 4617 H (313-618) U/L Creatine Kinase <20 L (30-135) U/L Troponin I (0.000-0.034) ng/mL C-Reactive Protein (<10.0) mg/L Total Protein 4.2 L (6.3-8.2) g/dL Albumin 2.2 L (3.5-5.0) g/dL Amylase <30 L (30-110) U/L Lipase 15 L (23-300) U/L Urine Color Urine Appearance (Clear) Urine pH (5.0-8.0) Ur Specific [place] (1.001-1.035) Urine Protein (Negative) Urine Glucose (UA) (Negative) Urine Ketones (Negative) Urine Blood (Negative) Urine Nitrite (Negative) Urine Bilirubin (Negative) Urine Urobilinogen (<2.0) mg/dL Ur Leukocyte Esterase (Negative) 02/01/20 02/01/20 02/01/20 Range/Units 07:42 07:42 07:42 WBC (3.8-10.6) k/uL RBC (3.80-5.40) m/uL Hgb (11.4-16.0) gm/dL Hct (34.0-46.0) % MCV (80.0-100.0) fL MCH (25.0-35.0) pg MCHC (31.0-37.0) g/dL RDW (11.5-15.5) % Plt Count (150-450) k/uL Neutrophils % % Lymphocytes % % Monocytes % % Eosinophils % % Basophils % % Neutrophils # (1.3-7.7) k/uL Lymphocytes # (1.0-4.8) k/uL Monocytes # (0-1.0) k/uL Eosinophils # (0-0.7) k/uL Basophils # (0-0.2) k/uL Manual Slide Review Anisocytosis Microcytosis PT (9.0-12.0) sec INR (<1.2) APTT (22.0-30.0) sec VBG pH 7.47 H (7.31-7.41) VBG pCO2 34 L (37-51) mmHg VBG HCO3 24 (24-28) mmol/L Sodium (137-145) mmol/L Potassium (3.5-5.1) mmol/L Chloride (98-107) mmol/L Carbon Dioxide (22-30) mmol/L Anion Gap mmol/L BUN (7-17) mg/dL Creatinine (0.52-1.04) mg/dL Est GFR (CKD-EPI)AfAm (>60 ml/min/1.73 sqM) Est GFR (CKD-EPI)NonAf (>60 ml/min/1.73 sqM) Glucose (74-99) mg/dL Plasma Lactic Acid Hany 3.2 H* (0.7-2.0) mmol/L Calcium (8.4-10.2) mg/dL Total Bilirubin (0.2-1.3) mg/dL AST (14-36) U/L ALT (4-34) U/L Alkaline Phosphatase (38-126) U/L Lactate Dehydrogenase (313-618) U/L Creatine Kinase (30-135) U/L Troponin I <0.012 (0.000-0.034) ng/mL C-Reactive Protein (<10.0) mg/L Total Protein (6.3-8.2) g/dL Albumin (3.5-5.0) g/dL Amylase (30-110) U/L Lipase (23-300) U/L Urine Color Urine Appearance (Clear) Urine pH (5.0-8.0) Ur Specific [place] (1.001-1.035) Urine Protein (Negative) Urine Glucose (UA) (Negative) Urine Ketones (Negative) Urine Blood (Negative) Urine Nitrite (Negative) Urine Bilirubin (Negative) Urine Urobilinogen (<2.0) mg/dL Ur Leukocyte Esterase (Negative) 02/01/20 02/01/20 Range/Units 07:42 09:10 WBC (3.8-10.6) k/uL RBC (3.80-5.40) m/uL Hgb (11.4-16.0) gm/dL Hct (34.0-46.0) % MCV (80.0-100.0) fL MCH (25.0-35.0) pg MCHC (31.0-37.0) g/dL RDW (11.5-15.5) % Plt Count (150-450) k/uL Neutrophils % % Lymphocytes % % Monocytes % % Eosinophils % % Basophils % % Neutrophils # (1.3-7.7) k/uL Lymphocytes # (1.0-4.8) k/uL Monocytes # (0-1.0) k/uL Eosinophils # (0-0.7) k/uL Basophils # (0-0.2) k/uL Manual Slide Review Anisocytosis Microcytosis PT (9.0-12.0) sec INR (<1.2) APTT (22.0-30.0) sec VBG pH (7.31-7.41) VBG pCO2 (37-51) mmHg VBG HCO3 (24-28) mmol/L Sodium (137-145) mmol/L Potassium (3.5-5.1) mmol/L Chloride (98-107) mmol/L Carbon Dioxide (22-30) mmol/L Anion Gap mmol/L BUN (7-17) mg/dL Creatinine (0.52-1.04) mg/dL Est GFR (CKD-EPI)AfAm (>60 ml/min/1.73 sqM) Est GFR (CKD-EPI)NonAf (>60 ml/min/1.73 sqM) Glucose (74-99) mg/dL Plasma Lactic Acid Hany (0.7-2.0) mmol/L Calcium (8.4-10.2) mg/dL Total Bilirubin (0.2-1.3) mg/dL AST (14-36) U/L ALT (4-34) U/L Alkaline Phosphatase (38-126) U/L Lactate Dehydrogenase (313-618) U/L Creatine Kinase (30-135) U/L Troponin I (0.000-0.034) ng/mL C-Reactive Protein 58.4 H (<10.0) mg/L Total Protein (6.3-8.2) g/dL Albumin (3.5-5.0) g/dL Amylase (30-110) U/L Lipase (23-300) U/L Urine Color Yellow Urine Appearance Clear (Clear) Urine pH 7.0 (5.0-8.0) Ur Specific [place] 1.034 (1.001-1.035) Urine Protein Negative (Negative) Urine Glucose (UA) Negative (Negative) Urine Ketones Negative (Negative) Urine Blood Negative (Negative) Urine Nitrite Negative (Negative) Urine Bilirubin Negative (Negative) Urine Urobilinogen 3.0 (<2.0) mg/dL Ur Leukocyte Esterase Negative (Negative) Critical Care Time Critical Care Time: Yes Total Critical Care Time: 35 <Elvis Calzada - Last Filed: 02/01/20 09:38> Critical Care Time: Total 35 minutes of critical care time used initially evaluate the patient. Past medical history, according labs, imaging. Patient found to be hypotensive, hyponatremia, anemia, transaminitis with non-Hodgkin's lymphoma and most likely underlying sepsis. Case discussed with oncologist, surgery, repairer, hospitalist. Patient's was given 1500 mL normal saline bolus, started on the 130 miles per hour fusion, Levophed patient will be admitted to the ICU for treatment, management. Patient has 2 peripheral line access. was started, broad-spectrum antibiotics were ordered as directed by oncologist kina Freeman. (Elvis Calzada) Disposition <Elvis Calzada - Last Filed: 02/01/20 09:38> <Richie Lawler - Last Filed: 02/01/20 09:53> Clinical Impression: Sepsis, Transaminitis, Lymphoma, Hyponatremia, Ascites, Hypotension, Thrombocytopenia, Pleural effusion, Anemia Disposition: ADMITTED IP TO THIS HOSP Condition: Critical
[2020-02-01 07:56] LABS: VBG PH 7.47 (7.31-7.41)
[2020-02-01 08:11] LABS: ALT 73 U/L (4-34); AST 130 U/L (14-36); African American GFR (CKD) >90 (>60 ml/min/1.73 sqM); Albumin 2.2 g/dL (3.5-5.0); Alkaline Phosphatase 431 U/L (38-126); Amylase <30 U/L (30-110); Anion Gap 7 mmol/L; Anisocytosis Moderate; Basophils % (A) 1 %; Blood Urea Nitrogen 24 mg/dL (7-17); Calcium 7.2 mg/dL (8.4-10.2); Carbon Dioxide 24 mmol/L (22-30); Chloride 92 mmol/L (98-107); Creatine Kinase <20 U/L (30-135); Eosinophils % (A) 1 %; Glucose 105 mg/dL (74-99); HCT 24.8 % (34.0-46.0); HGB 8.1 gm/dL (11.4-16.0); Lymphocytes % (A) 1 %; MCHC 32.5 g/dL (31.0-37.0); Mean Platelet Volume 11.4; Microcytosis Slight; Monocytes # (A) 0.1 k/uL (0-1.0); Monocytes % (A) 3 %; Neutrophils # (A) 3.2 k/uL (1.3-7.7); Neutrophils % (A) 92 %; Non-African American GFR(CKD) >90 (>60 ml/min/1.73 sqM); Potassium 4.3 mmol/L (3.5-5.1); RBC 2.88 m/uL (3.80-5.40); RDW 21.7 % (11.5-15.5); Sodium 123 mmol/L (137-145); Total Bilirubin 3.4 mg/dL (0.2-1.3); Total Protein 4.2 g/dL (6.3-8.2); WBC 3.5 k/uL (3.8-10.6)
[2020-02-01 08:17] LABS: Partial Thromboplastin Time 26.2 sec (22.0-30.0); Prothrombin Time 10.3 sec (9.0-12.0)
[2020-02-01 08:31] LABS: Platelet Count 23 k/uL (150-450)
[2020-02-01 08:45] LABS: LDH 4617 U/L (313-618)
--- NOTE | 2020-02-01 08:47 | CT ---
EXAMINATION TYPE: CT ChestAbdPelvis w con DATE OF EXAM: 02/01/2020 COMPARISON: Previous PET/CT dated 01/09/2020. HISTORY: chest, back and abd pain, known non hodgkins lymphoma CT DLP: 629.1 mGycm Automated exposure control for dose reduction was used. TECHNIQUE: Helical acquisition through the abdomen and pelvis was obtained without oral contrast but following the intravenous administration of 100 mL of Isovue 300. The data was formatted in the axia l, coronal and sagittal projections. FINDINGS: There has been interval development of moderate, bilateral effusions. There is associated r elaxation atelectasis. There are multifocal groundglass opacities in both lungs. There is no pericard ial fluid. The heart is not enlarged. There is some calcified mediastinal and hilar lymph nodes. These were present previously and appear u nchanged. Within the abdomen, there is ascites. There is marked splenomegaly with spleen measuring over 17 cm. The liver is upper limits of normal in size. The gallbladder is normal. Both adrenal glands appear normal. There is a small area of decreased function in the anterior inferior aspect of the left kidney. It wo uld difficult to exclude pyelonephritis. There is extensive para-aortic and paracaval adenopathy. This may have worsened slightly from previou s. The bladder is unremarkable. There are diverticula within the sigmoid colon. In the face of ascites there is stranding within the pelvic fat and I cannot reliably exclude diverticulitis. There is thick walled and dilated small bowel in the midabdomen. The proximal small bowel and distal small bowel are more normal in their appearance. The appendix is not visualized. There is a questionable bubble of air outside of the small bowel best seen on axial image 97 and yanni nal image 40 no gross free air is seen. There is degenerative disc disease, facet arthropathy and hypertrophic spondylosis throughout the vis ualized skeleton. No definite bony destructive lesions are seen. IMPRESSION: 1. INTERVAL DEVELOPMENT OF BILATERAL EFFUSIONS AND ASCITES. 2. SPLENOMEGALY. 3. MARKED SMALL BOWEL WALL THICKENING IN THE MID SMALL BOWEL. THIS PATIENT'S DIAGNOSIS INFILTRATIVE CAUSES WOULD NEED TO BE CONSIDERED. 4. QUESTIONABLE TINY BUBBLE OF FREE AIR DESCRIBED. 5. MULTIFOCAL GROUNDGLASS OPACITIES WITHIN THE CHEST. I COULD NOT EXCLUDE COVID 19 INFECTION. 6. SMALL AREA OF DECREASED FUNCTION IN THE ANTERIOR INFERIOR ASPECT OF THE LEFT KIDNEY MAY REFLECT OL D SCARRING. PYELONEPHRITIS IS NOT EXCLUDED. 7. UNCOMPLICATED DIVERTICULOSIS OF THE SIGMOID COLON. 8. DEGENERATIVE CHANGES WITHIN THE SPINE.
[2020-02-01] MEDS ORDERED: PIPERACILLIN-TAZOBACTAM 3.375 GM in SODIUM CHLORIDE 0.9% 100 ML IVPB STA (09:08)
[2020-02-01] MEDS ORDERED: VANCOMYCIN IV PER PHARMACY 1 EACH MISC MISCELLANE PRN (09:09)
[2020-02-01] MEDS ORDERED: VANCOMYCIN 1,000 MG in SODIUM CHLORIDE 0.9% 250 ML IVPB STA (09:15)
[2020-02-01 09:17] LABS: C Reactive Protein 58.4 mg/L (<10.0)
[2020-02-01] MEDS: SODIUM CHLORIDE 0.9% 1,000 ML IV SCH ×3 (09:22→23:46)
[2020-02-01] MEDS ORDERED: NALOXONE 0.4 MG/ML 1 ML VIAL IV PRN (09:31)
[2020-02-01 09:37] LABS: Appearance,Urine Clear (Clear); Bilirubin,Urine Negative (Negative); Blood,Urine Negative (Negative); Color,Urine Yellow; Glucose,Urine (UA) Negative (Negative); Ketones,Urine Negative (Negative); Leukocyte Esterase,Urine Negative (Negative); Nitrite,Urine Negative (Negative); Protein,Urine Negative (Negative); Specific Gravity,Urine 1.034 (1.001-1.035)
[2020-02-01 10:15] LABS: Magnesium 2.2 mg/dL (1.6-2.3)
[2020-02-01] MEDS: NOREPINEPHRINE 4 MG in SODIUM CHLORIDE 0.9% 250 ML IV SCH (10:18)
[2020-02-01 10:42] LABS: Glucose,Whole Blood 106 mg/dL (75-99)
--- NOTE | 2020-02-01 11:18 | P.CNPUL ---
History of Present Illness Consult date: 02/01/20 Chief complaint: Hypotension History of present illness: This is a 64-year-old female patient with a recent diagnosis of a high-grade T- cell non-Hodgkin's lymphoma. The patient's initially was having epigastric abdominal discomfort that started around October 2019. Subsequent follow-up in December 2019 showed that the patient had abnormal liver function tests with an alkaline phosphatase of 1038 and ALT of 297 and AST of 199 and the CBC showed leukopenia and thrombocytopenia. Ultrasound the abdomen that was done on 12/24/2019 revealed splenomegaly and abnormal thickening of the gallbladder wall with adenopathy in the brannon hepatis. Subsequent CAT scan of the abdomen that was done on 12/26/2019 showed adenopathy in her abdomen up to 1.7 cm into portal caval area and atypical appearance of the gallbladder and splenomegaly. Subsequent PET scan on 01/09/2020 showed extensive uptake in the bilateral neck lymph nodes waldeyer ring, and abdominal lymph nodes. A biopsy of the lymph node that was done at [facility] showed T-cell lymphoma, PTCI versus angioimmunoblastic. The patient was having progressive weakness, excessive weight loss, exertional dyspnea and epigastric pain and discomfort in addition to nausea. She was in a wheelchair. Her performance status was poor. Her BMI was 21.3. Based on this, discussion was done with the sister and based on the aggressive behavior of this lymphoma, chemotherapy was recommended with unde rstanding that the patient has a poor status and she may not tolerate the treatment well. A midline was inserted. Echocardiogram was done that showed no evidence of any significant LV dysfunction and a based on the echo the patient an ejection fraction of 55-60% and there was no evidence of any significant pericardial effusion and the pulmonary artery pressures are not elevated. As the patient was being prepared for systemic chemotherapy, she developed worsening abdominal pain and she came in today emergency department today because of significant abdominal pain. On examination she has direct tenderness. She is also nauseated. She looks cachectic and emaciated and malnourished. No reported fever. Her pain is rather diffuse. No hematuria. No melena. No bright red per rectum. A CAT scan of the abdomen and pelvis and the chest was done in the emergency department and showed interval development of bilateral pleural effusion and ascites. There is splenomegaly. There is marked small bowel wall thickening and questionable tiny air bubbles of free air is also described in the abdomen. Minimal groundglass changes in the lungs. There is also a small area of decreased function in the anterior aspect of the left kidney which raises the suspicion for pyelonephritis. UA is pending for now. There is evidence of uncomplicated diverticulosis involving the sigmoid colon. There are degenerative changes in the spine. The patient was given 1/2 L of IV fluids. She continued to be hypotensive in the burst department. She was started on norepinephrine infusion which is running at 0.04 mg per KG per minute. She was started on the comminution of Zosyn and vancomycin. She was transferred to the ICU for further monitoring. She looks quite ill. She has been a poor historian. She has a white cell count of 3.5 with a hemoglobin of 8.1. Her platelet count is down to 23. Her sodium level is at 123, chloride is 92, the bilirubin is at 3.4 with a AST of 1:30, ALT of 73, alkaline phosphatase of 431, LDH of 4617, CRP of 58, total protein of 4.2 with an albumin of 2.2, her uric acid level is at 2.3. Lactic acid level is at 3.2. Amylase and lipase are within normal. UA is negative. Glucose is 106. Review of Systems Constitutional: Reports fatigue, Reports weakness, Reports weight loss Eyes: denies as per HPI, denies blurred vision, denies bulging eye, denies decreased vision, denies diplopia, denies discharge, denies dry eye, denies irritation, denies itching, denies pain, denies photophobia, denies loss of peripheral vision, denies loss of vision, denies tunnel vision/blind spots Ears: deny: decreased hearing, ear discharge, earache, tinnitus Ears, nose, mouth and throat: Denies headache, Denies sore throat Breasts: absent: as per HPI, change in shape, gynecomastia, masses, nipple discharge, pain, skin changes, swelling Cardiovascular: Denies chest pain, Denies shortness of breath Respiratory: Reports as per HPI Gastrointestinal: Reports abdominal pain, Reports jaundice, Reports loss of appetite, Reports nausea Genitourinary: Reports as per HPI Menstruation: Reports as per HPI Musculoskeletal: Reports limitation of motion, Reports muscle weakness Musculoskeletal: bilateral: ankle swelling, absent: ankle pain, ankle stiffness Integumentary: Reports as per HPI Neurological: Reports weakness Psychiatric: Reports as per HPI, Reports change in appetite Endocrine: Reports as per HPI, Reports fatigue Hematologic/Lymphatic: Reports as per HPI Allergic/Immunologic: Reports as per HPI, Reports anaphylaxis Past Medical History Additional Past Medical History / Comment(s): HX URINARY INCONTINENCE, HX OF POLYP, NON-HODGKINS LYMPHOMA History of Any Multi-Drug Resistant Organisms: None Reported Past Surgical History: Breast Surgery, Orthopedic Surgery Additional Past Surgical History / Comment(s): RT ROTATOR CUFF, BREAST FATTY TISSUE AND MARKER (UNSURE WHICH SIDE) Past Anesthesia/Blood Transfusion Reactions: No Reported Reaction Past Psychological History: No Psychological Hx Reported Smoking Status: Current every day smoker Medications and Allergies Home Medications Medication Instructions Recorded Confirmed Type Eszopiclone [Lunesta] 3 mg PO HS 04/12/15 01/23/20 History Multivit,Ca,Min/D3/Herbal #181 1,000 unit PO DAILY 04/12/15 01/23/20 History [Estroven (Day or Night)] RX: Tolterodine ER [Detrol LA] 2 mg PO BID 04/12/15 01/23/20 History Allergies Allergy/AdvReac Type Severity Reaction Status Date / Time No Known Allergies Allergy Verified 02/01/20 07:25 Physical Exam Vitals: Vital Signs Temp Pulse Resp BP Pulse Ox 02/01/20 10:13 97.5 F L 102 H 16 73/50 94 L 02/01/20 10:09 97.1 F L 98 18 73/50 97 02/01/20 08:02 93 L 02/01/20 07:59 98 18 81/56 88 L 02/01/20 07:19 96.4 F L 104 H 20 73/48 97 Intake and Output 01/31/20 02/01/20 02/01/20 22:59 06:59 14:59 Other: Weight 52.617 kg The patient is a cachectic thin frail elderly female patient looks well although than her stated age and she has a BMI of 22.7. Head exam was generally normal. There was no scleral icterus or corneal arcus. Mucous membranes were dry Neck was supple and without jugular venous distension, thyromegaly, or carotid bruits. Carotids were easily palpable bilaterally. There was no adenopathy Lungs were clear to auscultation and percussion, and with normal diaphragmatic excursion. No wheezes or rales were noted. Cardiac exam revealed the PMI to be normally situated and sized. The rhythm was regular and no extrasystoles were noted during several minutes of auscultation. The first and second heart sounds were normal and physiologic splitting of the second heart sound was noted. There were no murmurs, rubs, clicks, or gallops. Abdomen is tender and there is direct tenderness on the anterior abdominal wall. No rebound tenderness. No guarding. Organs cannot be accurately palpated. Extremities show +1 pitting edema lower extremities bilaterally involving the feet also. No cyanosis or clubbing. Neurologic exam is nonfocal and the patient is moving all 4 extremities without any limitation. She is responsive yet she is a poor historian. She follows si mple commands. No agitation. No seizure activity. Pupils are equal and reactive to light. No nystagmus. No clonus. Results - Laboratory Findings CBC and BMP: 02/01/20 07:42 02/01/20 07:42 PT/INR, D-dimer PT 10.3 sec (9.0-12.0) 02/01/20 07:42 INR 1.0 (<1.2) 02/01/20 07:42 D-Dimer 2.95 mg/L FEU (<0.60) H 02/01/20 07:42 Abnormal lab findings: Abnormal Labs 02/01/20 02/01/20 02/01/20 07:42 07:42 07:42 WBC 3.5 L RBC 2.88 L Hgb 8.1 L Hct 24.8 L RDW 21.7 H Plt Count 23 L D Lymphocytes # 0.0 L D-Dimer VBG pH VBG pCO2 Sodium 123 L Chloride 92 L BUN 24 H Glucose 105 H POC Glucose (mg/dL) Plasma Lactic Acid Hany 3.2 H* Uric Acid Calcium 7.2 L Total Bilirubin 3.4 H AST 130 H ALT 73 H Alkaline Phosphatase 431 H Lactate Dehydrogenase 4617 H Creatine Kinase <20 L C-Reactive Protein Total Protein 4.2 L Albumin 2.2 L Amylase <30 L Lipase 15 L 02/01/20 02/01/20 02/01/20 07:42 07:42 07:42 WBC RBC Hgb Hct RDW Plt Count Lymphocytes # D-Dimer VBG pH 7.47 H VBG pCO2 34 L Sodium Chloride BUN Glucose POC Glucose (mg/dL) Plasma Lactic Acid Hany Uric Acid 2.3 L Calcium Total Bilirubin AST ALT Alkaline Phosphatase Lactate Dehydrogenase Creatine Kinase C-Reactive Protein 58.4 H Total Protein Albumin Amylase Lipase 02/01/20 02/01/20 07:42 10:39 WBC RBC Hgb Hct RDW Plt Count Lymphocytes # D-Dimer 2.95 H VBG pH VBG pCO2 Sodium Chloride BUN Glucose POC Glucose (mg/dL) 106 H Plasma Lactic Acid Hany Uric Acid Calcium Total Bilirubin AST ALT Alkaline Phosphatase Lactate Dehydrogenase Creatine Kinase C-Reactive Protein Total Protein Albumin Amylase Lipase - Diagnostic Findings Chest x-ray: image reviewed CT scan - chest: image reviewed Assessment and Plan Plan: 1 non-Hodgkin's lymphoma, likely a aggressive high-grade T-cell lymphoma with significant lymphadenopathy throughout the body involving lymph nodes in the neck chest and abdomen. The patient has significant abnormalities in liver function tests. The patient was expressing chronic abdominal pain. The patient had abnormal LFTs for more than a month and she was being prepared for systemic chemotherapy with understanding that her baseline performance and functional status is been poor and she may not have a good outcome from treatment. 2 abdominal pain with CAT scan of the abdomen showing small bowel wall thickening which could be essentially negative and positive process versus ischemic. Lactic acid mildly elevated at 3.2. There is questionable air within the abdomen based on 1 a mentioned that showed a bubbles outside the small bowel. This will be discussed with general surgery. 3 splenomegaly secondary to above 4 bilateral pleural effusion/ascites secondary to above 5 degenerative changes of the spine 6 pancytopenia secondary to non-Hodgkin's lymphoma 7 lactic acidosis secondary to above 8 hypotension secondary to above, consider hypovolemic hypotension versus sepsis which is essentially of an intra-abdominal source. 9 abnormal LFTs which includes elevation of the bilirubin, AST ALT and alkaline phosphatase. Note that this has been chronically elevated and the patient Does not have the typical cholecystitis picture on the CAT scan of the abdomen. There is ascites. There is marked splenomegaly and the gallbladder was appearing to be normal. Elevation could be related to tumor burden involving the liver. The patient also has extensive para-aortic and paracaval lymphadenopathy which has been getting worse patient previous CAT scan. 10 hypochloremic hyponatremia 11 hypoproteinemia and hypoproteinemia secondary to above Plan Patient carries a very poor prognosis We'll resuscitate the patient with IV fluids pH was given a total of 2 L in the emergency room we'll continue normal saline at the rate of 150 mL an hour Norepinephrine infusion to maintain a mean atrial pressure above 65 This is a Mejía catheter Cover the patient with IV Zosyn and vancomycin Monitor electrolytes General surgical consultation Monitor lactic acid level Consults oncology Low suspicion for covid 19 Prognosis poor based above-mentioned comorbidities. We'll continue to follow.
[2020-02-01] MEDS ORDERED: SODIUM CHLORIDE 0.9% 1,000 ML IV ONE (12:18)
--- NOTE | 2020-02-01 12:22 | P.CONS ---
History of Present Illness - Reason for Consult Consult date: 02/01/20 Lymphoma Requesting physician: Elvis Calzada - Chief Complaint Back Pain - History of Present Illness CC : Follow Up T Cell Lymphoma Follow Up after Echo HPI : This is a very nice lady who follows with Dr. Nagel for a recent diagnosis of T- Cell Lymphoma. She originally presented with epigastric discomfort when she eats, started in October/2019. On 12/25/2019,CMP revealed alk up to 1038,ALT 297,AST 199,normal bilirubin,CBC revealed mild leukopenia and thrombocytopenia. U/S of abdomen on 12/24/2019 revealed splenomegaly,abnormal thickening of gallbladder wall and adenopathies at [facility] hepatis. CT scan of abdomen done on 12/26/2019, adenopathies through out her abdomen up to 1.7cm in portocaval area,atypical appearance of gallbladder and splenomegaly. On 01/09/2020,PET scan revealed extensive uptake in bilateral neck nodes,waldeyer ring,axilla and abdominal nodes. She had a biopsy at [facility],pre liminary report is consistent with T cell lymphoma,P TCL vs angio immunoblastic Echocardiogram on 01/22/2020 revealed normal EF. She has been quit symptomatic from her new diagnosis and was recently treated with a short round of prednisone which did improve symptoms somewhat. However, she continued to complain of feeling very weak,progressive weight loss,exertional dyspnea,has epigastric pain and discomfort when she eats,nausea,in wheelchair,overall,and at last visit she states these symptoms are "just getting worse" The preliminary pathology report was consistent with aggressive T cell lymphoma,awaiting additonal staining to further classify it. T cell lymphoma have aggressive behavior and require treatment with poly chemot herapy regimen, with her PS status being poor their is a concern for overall tolerance to treatment. She did agree to pursue aggressive therapy at this time. Treatment was to begin on 02/04/20 with [facility]. May consider IT prophylaxis. Overall prognosis is poor. On 02/01/20 she presented to emergency with complaints of new back pain. On presentation she is Hypotensive, Tachycardia, afebrile. CT C/A/P ?pyelonephritis but urinalysis did not cordinate. LDH in dramatically increasing from 3667-4623 today, uric acid stable. Bilirubin and LFTs increased. .During visit spoke with RN and Dr. Ya at bedside. She had a portable xray and concern for evidence of free air. Review of Systems A 14 point review of systems assessed and completed and all negative except HPI Past Medical History Additional Past Medical History / Comment(s): HX URINARY INCONTINENCE, HX OF POLYP, NON-HODGKINS LYMPHOMA History of Any Multi-Drug Resistant Organisms: None Reported Past Surgical History: Breast Surgery, Orthopedic Surgery Additional Past Surgical History / Comment(s): RT ROTATOR CUFF, BREAST FATTY TISSUE AND MARKER (UNSURE WHICH SIDE) Past Anesthesia/Blood Transfusion Reactions: No Reported Reaction Past Psychological History: No Psychological Hx Reported Smoking Status: Current every day smoker - Past Family History Father Family Medical History: Rheumatoid Arthritis (RA) Additional Family Medical History / Comment(s): parkinsons Mother Family Medical History: Diabetes Mellitus, Rheumatoid Arthritis (RA) Brother(s) Family Medical History: Rheumatoid Arthritis (RA) Additional Family Medical History / Comment(s): 1/2 brother mothers side Sister(s) Family Medical History: Rheumatoid Arthritis (RA) Medications and Allergies Home Medications Medication Instructions Recorded Confirmed Type Eszopiclone [Lunesta] 3 mg PO HS 04/12/15 02/01/20 History Multivit,Ca,Min/D3/Herbal #181 1,000 unit PO DAILY 04/12/15 02/01/20 History [Estroven (Day or Night)] Tolterodine ER [Detrol LA] 2 mg PO BID 04/12/15 02/01/20 History Allergies Allergy/AdvReac Type Severity Reaction Status Date / Time No Known Allergies Allergy Verified 02/01/20 12:52 Physical Exam Vitals: Vital Signs Temp Pulse Resp BP Pulse Ox 02/01/20 10:13 97.5 F L 102 H 16 73/50 94 L 02/01/20 10:09 97.1 F L 98 18 73/50 97 02/01/20 08:02 93 L 02/01/20 07:59 98 18 81/56 88 L 02/01/20 07:19 96.4 F L 104 H 20 73/48 97 Intake and Output 01/31/20 02/01/20 02/01/20 22:59 06:59 14:59 Other: Weight 52.617 kg Gen: Alert, mild distress Head: NCNT Neck: Supple Lungs: mild increased effort Heart: Tachy reg Abdom: Distended, soft, Tender Ext: Edema mild jose Picc line Right arm CDI Results CBC & Chem 7: 02/01/20 07:42 02/01/20 07:42 Labs: Abnormal Lab Results - Last 24 Hours (Table) 02/01/20 02/01/20 02/01/20 Range/Units 07:42 07:42 07:42 WBC 3.5 L (3.8-10.6) k/uL RBC 2.88 L (3.80-5.40) m/uL Hgb 8.1 L (11.4-16.0) gm/dL Hct 24.8 L (34.0-46.0) % RDW 21.7 H (11.5-15.5) % Plt Count 23 L D (150-450) k/uL Lymphocytes # 0.0 L (1.0-4.8) k/uL D-Dimer (<0.60) mg/L FEU VBG pH (7.31-7.41) VBG pCO2 (37-51) mmHg Sodium 123 L (137-145) mmol/L Chloride 92 L (98-107) mmol/L BUN 24 H (7-17) mg/dL Glucose 105 H (74-99) mg/dL POC Glucose (mg/dL) (75-99) mg/dL Plasma Lactic Acid Hany 3.2 H* (0.7-2.0) mmol/L Uric Acid (3.7-7.4) mg/dL Calcium 7.2 L (8.4-10.2) mg/dL Total Bilirubin 3.4 H (0.2-1.3) mg/dL AST 130 H (14-36) U/L ALT 73 H (4-34) U/L Alkaline Phosphatase 431 H (38-126) U/L Lactate Dehydrogenase 4617 H (313-618) U/L Creatine Kinase <20 L (30-135) U/L C-Reactive Protein (<10.0) mg/L Total Protein 4.2 L (6.3-8.2) g/dL Albumin 2.2 L (3.5-5.0) g/dL Amylase <30 L (30-110) U/L Lipase 15 L (23-300) U/L 05/02/01/20 02/01/20 Range/Units 07:42 07:42 07:42 WBC (3.8-10.6) k/uL RBC (3.80-5.40) m/uL Hgb (11.4-16.0) gm/dL Hct (34.0-46.0) % RDW (11.5-15.5) % Plt Count (150-450) k/uL Lymphocytes # (1.0-4.8) k/uL D-Dimer (<0.60) mg/L FEU VBG pH 7.47 H (7.31-7.41) VBG pCO2 34 L (37-51) mmHg Sodium (137-145) mmol/L Chloride (98-107) mmol/L BUN (7-17) mg/dL Glucose (74-99) mg/dL POC Glucose (mg/dL) (75-99) mg/dL Plasma Lactic Acid Hany (0.7-2.0) mmol/L Uric Acid 2.3 L (3.7-7.4) mg/dL Calcium (8.4-10.2) mg/dL Total Bilirubin (0.2-1.3) mg/dL AST (14-36) U/L ALT (4-34) U/L Alkaline Phosphatase (38-126) U/L Lactate Dehydrogenase (313-618) U/L Creatine Kinase (30-135) U/L C-Reactive Protein 58.4 H (<10.0) mg/L Total Protein (6.3-8.2) g/dL Albumin (3.5-5.0) g/dL Amylase (30-110) U/L Lipase (23-300) U/L 02/01/20 02/01/20 Range/Units 07:42 10:39 WBC (3.8-10.6) k/uL RBC (3.80-5.40) m/uL Hgb (11.4-16.0) gm/dL Hct (34.0-46.0) % RDW (11.5-15.5) % Plt Count (150-450) k/uL Lymphocytes # (1.0-4.8) k/uL D-Dimer 2.95 H (<0.60) mg/L FEU VBG pH (7.31-7.41) VBG pCO2 (37-51) mmHg Sodium (137-145) mmol/L Chloride (98-107) mmol/L BUN (7-17) mg/dL Glucose (74-99) mg/dL POC Glucose (mg/dL) 106 H (75-99) mg/dL Plasma Lactic Acid Hany (0.7-2.0) mmol/L Uric Acid (3.7-7.4) mg/dL Calcium (8.4-10.2) mg/dL Total Bilirubin (0.2-1.3) mg/dL AST (14-36) U/L ALT (4-34) U/L Alkaline Phosphatase (38-126) U/L Lactate Dehydrogenase (313-618) U/L Creatine Kinase (30-135) U/L C-Reactive Protein (<10.0) mg/L Total Protein (6.3-8.2) g/dL Albumin (3.5-5.0) g/dL Amylase (30-110) U/L Lipase (23-300) U/L Chest x-ray: report reviewed Abdominal x-ray: report reviewed CT scan - abdomen: report reviewed CT scan - chest: report reviewed CT scan - pelvis: report reviewed Assessment and Plan Plan: Assessment and Recommendations: Back Pain, Intractable: - Urinalysis Negative - ? Infectious inflammatory versus recent diagnosis lymphoma T-Cell Lymphoma: - New Diagnosis, aggressive disease, overall prognostics poor - Has not began treatment yet, was suppose to start this week with [facility]- Adcentris Pancytopenia: - Secondary to Lymphoma and worsened by possible infectious process - Transfuse PRBC irradiated if hemoglobin less than 7 - Transfuse single donor irradiated platelets if platelets less then 10 or if s/s bleeding - Hold all NSAIDs and anticoagulation Hypotension: - Correlate for Sepsis - Joyner Cultures - Recent Picc line placement: Blood cultures from Picc as well as peripheral - Infectious disease Increased Bili, Ast/ALT: - Monitor CMP Increased LDH: - Monitor for TLS, worsened with picture of SARs - Uric acid stable - Monitor Phos and CMP Free air on Xray: - Awaiting surgical input although high risk with underlying lymphoma Plan: - Continue supportive care per ICU team - Await Blood Cultures and COVID testing - Overall prognosis Guarded Long discussion with POA and sister regarding unfortunate situation of free air and not candidate for surgical intervention. They will be allowed to see her regarding plan for goals of care. We discussed hospice admission as a resonable consideration Greater than 35 minutes spent with patient and discussion with POA and Sister counseling and cordinating care Thank you for allowing us to participate in the care of this patient will follow along with you
--- NOTE | 2020-02-01 13:07 | P.GSCN ---
History of Present Illness Consult date: 02/01/20 History of present illness: CHIEF COMPLAINT: Abdominal pain HISTORY OF PRESENT ILLNESS: The patient is a 64-year-old female recently diagnosed with lymphoma for the past month. She reports feeling well today until 2 days ago. Yesterday she she developed acute onset diffuse generalized crampy abdominal pain with radiation to her back. Last bowel movement was also yesterday. No blood in stools. She denies any previous episodes. She currently has a power PICC line for chemotherapy. She presented to the emergency room secondary to severe abdominal pain. She presents with multiple medical comorbidities including hypertension, thrombocytopenia, platelets 23, 000, anemia, hemoglobin 8.1, severe hyponatremia sodium 123, elevated LFTs and lactic acidosis elevated lactate of 3.2. CT of the abdomen and pelvis report demonstrated thickened small bowel wall and questionable foci of air as result, general surgery is consulted. Since admission to the ICU, she reports abdominal pain has improved. She is requesting ice chips. She is currently on pressors to maintain her blood pressure. PAST MEDICAL HISTORY: See list. PAST SURGICAL HISTORY: See list. MEDICATIONS: See list. ALLERGIES: See list. SOCIAL HISTORY: See list. FAMILY HISTORY: See list. REVIEW OF ORGAN SYSTEMS: CONSTITUTIONAL: No fevers or chills. EYES: Denies any trouble with vision. No glasses. HEENT: No difficulties with hearing. No nosebleeds. No difficulty swallowing. RESPIRATORY: Denies pneumonia. Denies any troubles with breathing or dyspnea on exertion. CARDIOVASCULAR: Denies any chest pain, palpitations, or recent heart attacks. GASTROINTESTINAL: Denies fatty food intolerance. Denies change in bowel habits and gas bloat. GENITOURINARY: Denies any blood in urine or increased urinary frequency. NEUROLOGICAL: Denies any numbness or tingling along the distal extremities. No seizure disorders or headaches. MUSCULOSKELETAL: Has back pain, stiffness or joint arthritis. SKIN: No current skin cancer. No rash. PSYCHIATRIC: Has depression. ENDOCRINE: Denies current thyroid disorders. Denies any blood sugar glucose intolerance. HEME/LYMPHATIC: New diagnosis of Hodgkin's lymphoma. ALLERGY/IMMUNOLOGY: Has rheumatoid arthritis. PHYSICAL EXAM: VITALS: Reviewed CONSTITUTIONAL: Well developed and in no acute distress. EYES: Extraocular movements grossly intact. HEAD, EARS, NOSE, THROAT: Dry buccal mucosa. Head is atraumatic, normocephalic. Hears conversational speech. No nasal drainage. NECK: Supple. No JV distention. No thyroidomegaly. RESPIRATORY: Non-labored respirations and equal bilateral excursions. No gross wheezes. CARDIOVASCULAR: Regular rate and rhythm. Extremities without moderate edema. Palpable 2+ radial pulses. ABDOMEN: Soft. Diffusely tender. No peritonitis. MUSCULOSKELETAL: Nail and fingers with good capillary refill. SKIN: Warm and well perfused with good skin turgor. NEUROLOGIC: Cranial nerves II through XII grossly intact. Sensation upper and extremities intact. No focal or lateralizing signs. PSYCH: Appropriate affect. Alert and oriented to person, place and time. CLINCAL LABS: Reviewed. WBC low 3.5. Hemoglobin low 8.1. Platelets low 23,000. Sodium level low at 123. Lactic acid elevated at 3.2 down to 2.5. AST ALT LFTs total bilirubin elevated. Urinalysis negative. IMAGING: Independently reviewed of the CT abdomen and pelvis including chest. No diffuse free air identified. No evidence of bowel obstruction. Evidence of intra-abdominal ascites. Large retroperitoneal adenopathy. Spleen also moderately enlarged. This is my personal interpretation. RADIOLOGY: Report reviewed confirms mid abdominal small bowel edema, intra- abdominal ascites, retroperitoneal adenopathy, questionable small foci of air of the small bowel, diverticulosis and marked splenomegaly ASSESSMENT: 1. Abnormal computed tomography scan for intraperitoneal air 2. Diffuse abdominal pain 3. Non-Hodgkin's lymphoma 4. Hyponatremia 5. Thrombocytopenia 6. Pancytopenia 7. Elevated LFTs 8. Splenomegaly PLAN: 1. She reports some improvement of her abdominal pain since admission. She has multiple electrolyte dyscrasias including pancytopenia which will need to be corrected. 2. I personally reviewed her computed tomography scan without evidence of free perforation of the bowels. Would recommend repeat CT with oral contrast to help delineate pathology in 24 hours. 3. Recommend aggressive IV fluid hydration as she presents with elevated lactate levels as well as dehydration. 4. Overall, patient will need to be stabilized. At this time, patient poses high risk for perioperative complications with pancytopenia. 5. Agree with intensive care unit management and assessment. 6. May start ice chips and popsicles. 7. Correct volume status Thank you for this kind consultation. Past Medical History Past Medical History: Rheumatoid Arthritis (RA) Additional Past Medical History / Comment(s): HX URINARY INCONTINENCE, HX OF POLYP, NON-HODGKINS LYMPHOMA History of Any Multi-Drug Resistant Organisms: None Reported Past Surgical History: Breast Surgery, Orthopedic Surgery Additional Past Surgical History / Comment(s): RT ROTATOR CUFF, BREAST FATTY TISSUE AND MARKER (UNSURE WHICH SIDE) Past Anesthesia/Blood Transfusion Reactions: No Reported Reaction Past Psychological History: No Psychological Hx Reported Smoking Status: Current every day smoker - Past Family History Father Family Medical History: Rheumatoid Arthritis (RA) Additional Family Medical History / Comment(s): parkinsons Mother Family Medical History: Diabetes Mellitus, Rheumatoid Arthritis (RA) Brother(s) Family Medical History: Rheumatoid Arthritis (RA) Additional Family Medical History / Comment(s): 1/2 brother mothers side Sister(s) Family Medical History: Rheumatoid Arthritis (RA) Medications and Allergies Home Medications Medication Instructions Recorded Confirmed Type Eszopiclone [Lunesta] 3 mg PO HS 04/12/15 02/01/20 History Multivit,Ca,Min/D3/Herbal #181 1,000 unit PO DAILY 04/12/15 02/01/20 History [Estroven (Day or Night)] Tolterodine ER [Detrol LA] 2 mg PO BID 04/12/15 02/01/20 History Allergies Allergy/AdvReac Type Severity Reaction Status Date / Time No Known Allergies Allergy Verified 02/01/20 12:52 Surgical - Exam Vital Signs Temp Pulse Resp BP Pulse Ox 96.4 F L 104 H 20 73/48 97 02/01/20 07:19 02/01/20 07:19 02/01/20 07:19 02/01/20 07:19 02/01/20 07:19 Results - Labs 02/01/20 07:42 02/01/20 07:42 Abnormal Lab Results - Last 24 Hours (Table) 02/01/20 02/01/20 02/01/20 Range/Units 07:42 07:42 07:42 WBC 3.5 L (3.8-10.6) k/uL RBC 2.88 L (3.80-5.40) m/uL Hgb 8.1 L (11.4-16.0) gm/dL Hct 24.8 L (34.0-46.0) % RDW 21.7 H (11.5-15.5) % Plt Count 23 L D (150-450) k/uL Lymphocytes # 0.0 L (1.0-4.8) k/uL D-Dimer (<0.60) mg/L FEU VBG pH (7.31-7.41) VBG pCO2 (37-51) mmHg Sodium 123 L (137-145) mmol/L Chloride 92 L (98-107) mmol/L BUN 24 H (7-17) mg/dL Glucose 105 H (74-99) mg/dL POC Glucose (mg/dL) (75-99) mg/dL Plasma Lactic Acid Hany 3.2 H* (0.7-2.0) mmol/L Uric Acid (3.7-7.4) mg/dL Calcium 7.2 L (8.4-10.2) mg/dL Total Bilirubin 3.4 H (0.2-1.3) mg/dL AST 130 H (14-36) U/L ALT 73 H (4-34) U/L Alkaline Phosphatase 431 H (38-126) U/L Lactate Dehydrogenase 4617 H (313-618) U/L Creatine Kinase <20 L (30-135) U/L C-Reactive Protein (<10.0) mg/L Total Protein 4.2 L (6.3-8.2) g/dL Albumin 2.2 L (3.5-5.0) g/dL Amylase <30 L (30-110) U/L Lipase 15 L (23-300) U/L 02/01/20 02/01/20 02/01/20 Range/Units 07:42 07:42 07:42 WBC (3.8-10.6) k/uL RBC (3.80-5.40) m/uL Hgb (11.4-16.0) gm/dL Hct (34.0-46.0) % RDW (11.5-15.5) % Plt Count (150-450) k/uL Lymphocytes # (1.0-4.8) k/uL D-Dimer (<0.60) mg/L FEU VBG pH 7.47 H (7.31-7.41) VBG pCO2 34 L (37-51) mmHg Sodium (137-145) mmol/L Chloride (98-107) mmol/L BUN (7-17) mg/dL Glucose (74-99) mg/dL POC Glucose (mg/dL) (75-99) mg/dL Plasma Lactic Acid Hany (0.7-2.0) mmol/L Uric Acid 2.3 L (3.7-7.4) mg/dL Calcium (8.4-10.2) mg/dL Total Bilirubin (0.2-1.3) mg/dL AST (14-36) U/L ALT (4-34) U/L Alkaline Phosphatase (38-126) U/L Lactate Dehydrogenase (313-618) U/L Creatine Kinase (30-135) U/L C-Reactive Protein 58.4 H (<10.0) mg/L Total Protein (6.3-8.2) g/dL Albumin (3.5-5.0) g/dL Amylase (30-110) U/L Lipase (23-300) U/L 02/01/20 02/01/20 02/01/20 Range/Units 07:42 10:39 11:37 WBC (3.8-10.6) k/uL RBC (3.80-5.40) m/uL Hgb (11.4-16.0) gm/dL Hct (34.0-46.0) % RDW (11.5-15.5) % Plt Count (150-450) k/uL Lymphocytes # (1.0-4.8) k/uL D-Dimer 2.95 H (<0.60) mg/L FEU VBG pH (7.31-7.41) VBG pCO2 (37-51) mmHg Sodium (137-145) mmol/L Chloride (98-107) mmol/L BUN (7-17) mg/dL Glucose (74-99) mg/dL POC Glucose (mg/dL) 106 H (75-99) mg/dL Plasma Lactic Acid Hany 2.5 H* (0.7-2.0) mmol/L Uric Acid (3.7-7.4) mg/dL Calcium (8.4-10.2) mg/dL Total Bilirubin (0.2-1.3) mg/dL AST (14-36) U/L ALT (4-34) U/L Alkaline Phosphatase (38-126) U/L Lactate Dehydrogenase (313-618) U/L Creatine Kinase (30-135) U/L C-Reactive Protein (<10.0) mg/L Total Protein (6.3-8.2) g/dL Albumin (3.5-5.0) g/dL Amylase (30-110) U/L Lipase (23-300) U/L Diabetes panel 02/01/20 Range/Units 07:42 Sodium 123 L (137-145) mmol/L Potassium 4.3 (3.5-5.1) mmol/L Chloride 92 L (98-107) mmol/L Carbon Dioxide 24 (22-30) mmol/L BUN 24 H (7-17) mg/dL Creatinine 0.57 (0.52-1.04) mg/dL Glucose 105 H (74-99) mg/dL Calcium 7.2 L (8.4-10.2) mg/dL AST 130 H (14-36) U/L ALT 73 H (4-34) U/L Alkaline Phosphatase 431 H (38-126) U/L Total Protein 4.2 L (6.3-8.2) g/dL Albumin 2.2 L (3.5-5.0) g/dL Calcium panel 02/01/20 Range/Units 07:42 Calcium 7.2 L (8.4-10.2) mg/dL Albumin 2.2 L (3.5-5.0) g/dL Pituitary panel 02/01/20 Range/Units 07:42 Sodium 123 L (137-145) mmol/L Potassium 4.3 (3.5-5.1) mmol/L Chloride 92 L (98-107) mmol/L Carbon Dioxide 24 (22-30) mmol/L BUN 24 H (7-17) mg/dL Creatinine 0.57 (0.52-1.04) mg/dL Glucose 105 H (74-99) mg/dL Calcium 7.2 L (8.4-10.2) mg/dL Adrenal panel 02/01/20 Range/Units 07:42 Sodium 123 L (137-145) mmol/L Potassium 4.3 (3.5-5.1) mmol/L Chloride 92 L (98-107) mmol/L Carbon Dioxide 24 (22-30) mmol/L BUN 24 H (7-17) mg/dL Creatinine 0.57 (0.52-1.04) mg/dL Glucose 105 H (74-99) mg/dL Calcium 7.2 L (8.4-10.2) mg/dL Total Bilirubin 3.4 H (0.2-1.3) mg/dL AST 130 H (14-36) U/L ALT 73 H (4-34) U/L Alkaline Phosphatase 431 H (38-126) U/L Total Protein 4.2 L (6.3-8.2) g/dL Albumin 2.2 L (3.5-5.0) g/dL Assessment and Plan (1) Pancytopenia Current Visit: Yes Status: Acute Code(s): D61.818 - OTHER PANCYTOPENIA SNOMED Code(s): 610837759 (2) Splenomegaly Current Visit: Yes Status: Acute Code(s): R16.1 - SPLENOMEGALY, NOT ELSEWHERE CLASSIFIED SNOMED Code(s): 29945618 (3) Hypovolemic shock Current Visit: Yes Status: Acute Code(s): R57.1 - HYPOVOLEMIC SHOCK SNOMED Code(s): 25568798 (4) Ascites Current Visit: Yes Status: Acute Code(s): R18.8 - OTHER ASCITES SNOMED Code(s): 065757048 (5) Hyponatremia Current Visit: Yes Status: Acute Code(s): E87.1 - HYPO-OSMOLALITY AND HYPONATREMIA SNOMED Code(s): 53957044 (6) Hypotension Current Visit: Yes Status: Acute Code(s): I95.9 - HYPOTENSION, UNSPECIFIED SNOMED Code(s): 22903053 (7) Lymphoma Current Visit: Yes Status: Acute Code(s): C85.90 - NON-HODGKIN LYMPHOMA, UNSPECIFIED, UNSPECIFIED SITE SNOMED Code(s): 950243949 (8) Pleural effusion Current Visit: Yes Status: Acute Code(s): J90 - PLEURAL EFFUSION, NOT ELSEWHERE CLASSIFIED SNOMED Code(s): 73339641 (9) Thrombocytopenia Current Visit: Yes Status: Acute Code(s): D69.6 - THROMBOCYTOPENIA, UNSPECIFIED SNOMED Code(s): 271829345 (10) Transaminitis Current Visit: Yes Status: Acute Code(s): R74.0 - NONSPEC ELEV OF LEVELS OF TRANSAMNS & LACTIC ACID DEHYDRGNSE SNOMED Code(s): 504606263
--- NOTE | 2020-02-01 14:19 | XR ---
EXAMINATION TYPE: XR abdomen acute w cxr , 4 VIEWS DATE OF EXAM ORDERED: 02/01/2020 HISTORY: acute abdomen/tender diffuse. COMPARISON: None. FINDINGS: Lung volumes are prominent. There is patchy bilateral airspace disease. The heart is not e nlarged. No definite pleural fluid is seen. There is free air under the right hemidiaphragm. Within the abdomen, there are nondistended loops of large and small bowel throughout the abdomen no d efinite obstruction is seen. No unusual calcifications are seen. IMPRESSION: 1. PATCHY BILATERAL AIRSPACE. 2. FREE AIR UNDER THE RIGHT HEMIDIAPHRAGM. 3. NONSPECIFIC ABDOMINAL GAS PICTURE. THIS REPORT WAS PHONED TO MARLEY IN THE ICU AT THE TIME OF REPORTING.
--- NOTE | 2020-02-01 15:31 | P.HPIM ---
History of Present Illness H&P Date: 02/01/20 Chief Complaint: Abdominal pain History of presenting complaint: This is a pleasant 64-year-old patient of Dr. Lopes. Patient has been diagnosed non-Hodgkin's lymphoma by Dr. Goodman. Patient is due to start chemotherapy next week. Patient progressively has had decreased appetite and weight loss nor is a bowel movement every day or every other day. For the last 2 days ago started having progressively severe abdominal pain Central is no obvious nausea vomiting. For last 2 days had that dark bowel movement. There is no fever or chills. Pain was rather severe to the point of nearly doubling up. Presented to the ER. Computed tomography scan the ER showed some tiny bubble of free air that was questionable. Also small small bowel wall thickening in addition to bilateral effusions and ascites splenomegaly sigmoid diverticulosis. Patient was hypotensive and therefore moved to the ICU. Started antibiotics and levo fed. Patient rather tired and rundown. Dr. Zavala was contacted from the ER about the acute abdomen and so was tobacco flavorer. Review of systems: GEN.: Tired weight loss EYES: None HEENT: None NECK: None RESPIRATORY: Some shortness of breath CARDIOVASCULAR: None GASTROINTESTINAL: As above GENITOURINARY: None MUSCULOSKELETAL: Joint pains LYMPHATICS: None HEMATOLOGICAL: None PSYCHIATRY: Slightly anxious NEUROLOGICAL: None Past medical history to include: Rheumatoid arthritis, urinary incontinence, non-Hodgkin's lymphoma Social history: Lives alone. Does use a walker. Smokes a pack a day Physical examination: VITAL SIGNS: 97.4, 99, 20, 73/48, 88% on room air-upon presentation GENERAL: BMI 25.3, laying in bed, tired. EYES: Pupils equal. Conjunctiva palel. HEENT: External appearance of nose and ears normal, oral cavity grossly normal. NECK: JVD unable to assess; masses not palpable. HEART: First and second heart sounds are normal; no edema. LUNGS: Respiratory rate increased; decreased breath sounds. ABDOMEN: Soft, diffusely tender, slight guarding no rigidity, liver spleen not palpable, questionable masses palpable. PSYCH: Alert and oriented x3; mood and affect anxiousl. EXTREMITY: PICC line in the left upper extremity NEUROLOGICAL: Cranial nerves grossly intact; no facial asymmetry, power and sensation grossly intact. LYMPHATICS: No lymph nodes palpable in the axilla and neck INVESTIGATIONS, reviewed in the clinical context: White count 3.5 hemoglobin 8.1 platelets 23 pro time 10.3 potassium 4.3 sodium 123 bun 44 creatinine 0.57 and lactic acid 3.2 Total bilirubin 3.4 AST 1:30 ALT 73 LDH 4617 troponin I less than 0.012 CRP 58.4 albumin 2 lipase 15 UA negative EKG tracing personally reviewed by me-sinus rhythm Acute abdominal series films personally reviewed by me-shows free air under the right diaphragm and possible infiltrates Computed tomography scan of the chest abdomen pelvis-moderate bilateral effusions, atelectasis, multifocal groundglass appearance in both lungs, marked splenomegaly, extensive per aortic and paracaval adenopathy, sigmoid diverticulosis, thick-walled and dilated small bowel in the mid abdomen Assessment: -This is a patient with new diagnosis of Hodgkin's lymphoma, presents with 2 days of severe progressive abdominal pain. Abdominal examination reveals slight guarding and basal suspicion I ordered abdominal series that shows free air in the right diaphragm. My suspicion is for perforation probably from no masses lymphoma in the bowels could be small. Results of the abdominal x-ray had been communicated to Dr. Parrish. -Non-Hodgkin's lymphoma with significant lymphadenopathy and splenomegaly -Pancytopenia from NHL -Chronic nicotine dependence patient cigarette smoker -COPD in a current smoker -Hypovolemic, hyponatremia -Hyportensive shock, possibly also septic shock from likely perforated bowel and possibly secondary peritonitis Plan: Patient admitted to the ICU. On IV fluids and levo fed drip. IV vancomycin and IV Zosyn. Patient most likely has a perforated bowel. Very high risk for surgery. And given that she is hypotensive and possibly septic shock prognosis is not good. Patient seen by Dr. Ya from critical care and Dr. Parrish from general surgery. Hold off Lovenox for DVT prophylaxis because of low platelets. Consultation also made to Dr. Goodman team. Dilaudid for pain control. Prognosis is not good. Discussed with Dr. Ya.-We both of the same opinion. Did attempt to call patient's next of kin listed in the demographics, got a voicemail. Past Medical History Additional Past Medical History / Comment(s): HX URINARY INCONTINENCE, HX OF POLYP, NON-HODGKINS LYMPHOMA History of Any Multi-Drug Resistant Organisms: None Reported Past Surgical History: Breast Surgery, Orthopedic Surgery Additional Past Surgical History / Comment(s): RT ROTATOR CUFF, BREAST FATTY TISSUE AND MARKER (UNSURE WHICH SIDE) Past Anesthesia/Blood Transfusion Reactions: No Reported Reaction Past Psychological History: No Psychological Hx Reported Smoking Status: Current every day smoker - Past Family History Father Family Medical History: Rheumatoid Arthritis (RA) Additional Family Medical History / Comment(s): parkinsons Mother Family Medical History: Diabetes Mellitus, Rheumatoid Arthritis (RA) Brother(s) Family Medical History: Rheumatoid Arthritis (RA) Additional Family Medical History / Comment(s): 1/2 brother mothers side Sister(s) Family Medical History: Rheumatoid Arthritis (RA) Medications and Allergies Home Medications Medication Instructions Recorded Confirmed Type Eszopiclone [Lunesta] 3 mg PO HS 04/12/15 02/01/20 History Multivit,Ca,Min/D3/Herbal #181 1,000 unit PO DAILY 04/12/15 02/01/20 History [Estroven (Day or Night)] Tolterodine ER [Detrol LA] 2 mg PO BID 04/12/15 02/01/20 History Allergies Allergy/AdvReac Type Severity Reaction Status Date / Time No Known Allergies Allergy Verified 02/01/20 12:52 Physical Exam Vitals: Vital Signs Temp Pulse Resp BP Pulse Ox 02/01/20 10:13 97.5 F L 102 H 16 73/50 94 L 02/01/20 10:09 97.1 F L 98 18 73/50 97 02/01/20 08:02 93 L 02/01/20 07:59 98 18 81/56 88 L 02/01/20 07:19 96.4 F L 104 H 20 73/48 97 Intake and Output 01/31/20 02/01/20 02/01/20 22:59 06:59 14:59 Other: Weight 52.617 kg Results CBC & Chem 7: 02/01/20 07:42 02/01/20 07:42 Labs: Abnormal Lab Results - Last 24 Hours (Table) 02/01/20 02/01/20 02/01/20 Range/Units 07:42 07:42 07:42 WBC 3.5 L (3.8-10.6) k/uL RBC 2.88 L (3.80-5.40) m/uL Hgb 8.1 L (11.4-16.0) gm/dL Hct 24.8 L (34.0-46.0) % RDW 21.7 H (11.5-15.5) % Plt Count 23 L D (150-450) k/uL Lymphocytes # 0.0 L (1.0-4.8) k/uL D-Dimer (<0.60) mg/L FEU VBG pH (7.31-7.41) VBG pCO2 (37-51) mmHg Sodium 123 L (137-145) mmol/L Chloride 92 L (98-107) mmol/L BUN 24 H (7-17) mg/dL Glucose 105 H (74-99) mg/dL POC Glucose (mg/dL) (75-99) mg/dL Plasma Lactic Acid Hany 3.2 H* (0.7-2.0) mmol/L Uric Acid (3.7-7.4) mg/dL Calcium 7.2 L (8.4-10.2) mg/dL Total Bilirubin 3.4 H (0.2-1.3) mg/dL AST 130 H (14-36) U/L ALT 73 H (4-34) U/L Alkaline Phosphatase 431 H (38-126) U/L Lactate Dehydrogenase 4617 H (313-618) U/L Creatine Kinase <20 L (30-135) U/L C-Reactive Protein (<10.0) mg/L Total Protein 4.2 L (6.3-8.2) g/dL Albumin 2.2 L (3.5-5.0) g/dL Amylase <30 L (30-110) U/L Lipase 15 L (23-300) U/L 02/01/20 02/01/20 02/01/20 Range/Units 07:42 07:42 07:42 WBC (3.8-10.6) k/uL RBC (3.80-5.40) m/uL Hgb (11.4-16.0) gm/dL Hct (34.0-46.0) % RDW (11.5-15.5) % Plt Count (150-450) k/uL Lymphocytes # (1.0-4.8) k/uL D-Dimer (<0.60) mg/L FEU VBG pH 7.47 H (7.31-7.41) VBG pCO2 34 L (37-51) mmHg Sodium (137-145) mmol/L Chloride (98-107) mmol/L BUN (7-17) mg/dL Glucose (74-99) mg/dL POC Glucose (mg/dL) (75-99) mg/dL Plasma Lactic Acid Hany (0.7-2.0) mmol/L Uric Acid 2.3 L (3.7-7.4) mg/dL Calcium (8.4-10.2) mg/dL Total Bilirubin (0.2-1.3) mg/dL AST (14-36) U/L ALT (4-34) U/L Alkaline Phosphatase (38-126) U/L Lactate Dehydrogenase (313-618) U/L Creatine Kinase (30-135) U/L C-Reactive Protein 58.4 H (<10.0) mg/L Total Protein (6.3-8.2) g/dL Albumin (3.5-5.0) g/dL Amylase (30-110) U/L Lipase (23-300) U/L 02/01/20 02/01/20 Range/Units 07:42 10:39 WBC (3.8-10.6) k/uL RBC (3.80-5.40) m/uL Hgb (11.4-16.0) gm/dL Hct (34.0-46.0) % RDW (11.5-15.5) % Plt Count (150-450) k/uL Lymphocytes # (1.0-4.8) k/uL D-Dimer 2.95 H (<0.60) mg/L FEU VBG pH (7.31-7.41) VBG pCO2 (37-51) mmHg Sodium (137-145) mmol/L Chloride (98-107) mmol/L BUN (7-17) mg/dL Glucose (74-99) mg/dL POC Glucose (mg/dL) 106 H (75-99) mg/dL Plasma Lactic Acid Hany (0.7-2.0) mmol/L Uric Acid (3.7-7.4) mg/dL Calcium (8.4-10.2) mg/dL Total Bilirubin (0.2-1.3) mg/dL AST (14-36) U/L ALT (4-34) U/L Alkaline Phosphatase (38-126) U/L Lactate Dehydrogenase (313-618) U/L Creatine Kinase (30-135) U/L C-Reactive Protein (<10.0) mg/L Total Protein (6.3-8.2) g/dL Albumin (3.5-5.0) g/dL Amylase (30-110) U/L Lipase (23-300) U/L
--- NOTE | 2020-02-01 16:02 | P.PN ---
Progress Note - Text Progress Note Date: 02/01/20 The patient is doing poorly. The patient continues to have abdominal pain and repeat flat film of the abdomen showed and confirmed by suspicion of free air under the diaphragm. This is an acute abdomen. Discussed the case with the surgeon. Patient is not a surgical candidate based on poor performance status and comorbidities and she carries a high mortality. Dr Zavala's recommendations were against surgery and I support her opinion. I will recommend comfort care measures to the family. I have contacted the sister and the POA and have not gone any response over the phone. Will try to call again and share this information. This mortality will not be prevented by surgery. Discussed the case with Dr Galaviz.
--- NOTE | 2020-02-01 16:15 | P.PN ---
Progress Note - Text Progress Note Date: 02/01/20 I was notified by nursing regarding new abdominal films ordered by the hospitalist of an acute abdominal series. Addendum made by radiologist including results of abdominal x-ray shows free air along the liver. I personally came to assess the patient. Abdominal exam performed. No rigidity or guarding. No peritonitis on exam. Abdomen is diffusely tender however tolerable. She is mentating well and answering questions. She is alert and oriented. She demonstrates understanding of her questions. I did review with the patient risk of vent-dependent respiratory status, high chance of mortality from surgery. Patient reports that she is thirsty. Patient reports she wants to be comfortable. I also reviewed resuscitative measures including chest compression. Again patient preferred to be comfortable. I encouraged the patient to notify her family members as her prognosis is poor. Patient does not want surgery given her extremely high risk of mortality and compromised state. Patient's nurse was at bedside during above assessment and conversation. Overall, patient presents an extremely high mortality from surgery. Patient in agreement against surgery. Also, she is not a surgical candidate secondary to presenting hypovolemic shock, severe pancytopenia, including thrombocytopenia with high risk of bleeding, severe tumor burden from intra-abdominal pathology from non-Hodgkin's lymphoma. Recommend conservative measures/comfort measures. Critical care time 32 minutes
[2020-02-01] MEDS: PIPERACILLIN-TAZOBACTAM 3.375 GM in SODIUM CHLORIDE 0.9% 100 ML IVPB SCH ×2 (16:40→23:45)
[2020-02-01] MEDS ORDERED: VANCOMYCIN 1,000 MG in SODIUM CHLORIDE 0.9% 250 ML IVPB SCH (18:00)
[2020-02-01 18:01] LABS: Glucose,Whole Blood 93 mg/dL (75-99)
[2020-02-01 19:45] LABS: African American GFR (CKD) >90 (>60 ml/min/1.73 sqM); Anion Gap 5 mmol/L; Blood Urea Nitrogen 15 mg/dL (7-17); Calcium 6.5 mg/dL (8.4-10.2); Carbon Dioxide 19 mmol/L (22-30); Chloride 106 mmol/L (98-107); Glucose 83 mg/dL (74-99); Non-African American GFR(CKD) >90 (>60 ml/min/1.73 sqM); Potassium 3.8 mmol/L (3.5-5.1); Sodium 130 mmol/L (137-145)
[2020-02-01] MEDS ORDERED: Potassium Replacement Protocol 1 EACH MISC MISCELLANE PRN (19:56)
[2020-02-01] MEDS: POTASSIUM CHLORIDE 10 MEQ in WATER FOR INJECTION 1 100ML.BAG IVPB SCH ×2 (21:41→22:40)
[2020-02-01 23:56] LABS: Glucose,Whole Blood 78 mg/dL (75-99)
--- NOTE | 2020-02-02 00:41 | P.CONS ---
History of Present Illness - Reason for Consult Consult date: 02/01/20 sepsis Requesting physician: Kostas Galaviz - Chief Complaint abd pain x 1 day - History of Present Illness Patient is a 64-year-old female with a past medical history significant for lymphoma presenting to the ER with chief complaints of abdominal pain that started around 24 hours before presentation to the hospital the patient pain has been mostly in the upper abdominal area describing to be more of a squeezing to sharp almost 10 out of 10 in severity with some radiation around the abdominal as a band to the back area patient has been nauseated with it but no vomiting and denies having any diarrhea patient did have some chills but denies high-grade fever with the symptom had the patient presented to the hospital on arrival to the ER the patient did have a temperature of 96.4 F patient white count was 3.5 lactic acid 2.2 urine has been negative patient did have a CT of the chest abdominal pelvis done by the ER physician we did shows evidence of bilateral effusion and ascites splenomegaly marked small bowel wall thickening in the mid small bowel and a question of free air patient has been admitted to ICU acute abdominal series subsequently could not confirm the free air and has been evaluated by surgery and ICU team patient with apparently sta rted on vancomycin and Zosyn infectious disease was consulted for further management of antibiotic therapy and concern for sepsis. Review of Systems Positive point has been mentioned in HPI rest of the systems are negative Past Medical History Past Medical History: Rheumatoid Arthritis (RA) Additional Past Medical History / Comment(s): HX URINARY INCONTINENCE, HX OF POLYP, NON-HODGKINS LYMPHOMA History of Any Multi-Drug Resistant Organisms: None Reported Past Surgical History: Breast Surgery, Orthopedic Surgery Additional Past Surgical History / Comment(s): RT ROTATOR CUFF, BREAST FATTY TISSUE AND MARKER (UNSURE WHICH SIDE) Past Anesthesia/Blood Transfusion Reactions: No Reported Reaction Past Psychological History: No Psychological Hx Reported Smoking Status: Current every day smoker - Past Family History Father Family Medical History: Rheumatoid Arthritis (RA) Additional Family Medical History / Comment(s): parkinsons Mother Family Medical History: Diabetes Mellitus, Rheumatoid Arthritis (RA) Brother(s) Family Medical History: Rheumatoid Arthritis (RA) Additional Family Medical History / Comment(s): 1/2 brother mothers side Sister(s) Family Medical History: Rheumatoid Arthritis (RA) Medications and Allergies Home Medications Medication Instructions Recorded Confirmed Type Eszopiclone [Lunesta] 3 mg PO HS 04/12/15 02/01/20 History Multivit,Ca,Min/D3/Herbal #181 1,000 unit PO DAILY 04/12/15 02/01/20 History [Estroven (Day or Night)] Tolterodine ER [Detrol LA] 2 mg PO BID 04/12/15 02/01/20 History Allergies Allergy/AdvReac Type Severity Reaction Status Date / Time No Known Allergies Allergy Verified 02/01/20 12:52 Physical Exam Vitals: Vital Signs Temp Pulse Resp BP Pulse Ox 02/01/20 14:30 89 31 H 89/55 94 L 02/01/20 14:15 87 30 H 85/52 94 L 02/01/20 14:00 91 30 H 91/56 95 02/01/20 13:45 92 36 H 91/55 95 02/01/20 13:30 90 31 H 91/55 94 L 02/01/20 13:15 93 34 H 80/55 95 02/01/20 13:00 88 26 H 93/57 93 L 02/01/20 12:40 96 31 H 78/52 94 L 02/01/20 12:30 92 20 80/54 97 02/01/20 12:20 85 19 80/54 98 02/01/20 12:10 93 23 84/52 94 L 02/01/20 12:00 98 22 84/53 92 L 02/01/20 11:50 99 36 H 84/53 93 L 02/01/20 11:40 101 H 20 95/56 93 L 02/01/20 11:30 104 H 22 96/65 90 L 02/01/20 11:20 92 33 H 96/65 95 02/01/20 11:10 98 33 H 97/61 93 L 02/01/20 11:00 97.6 F 98 31 H 100/65 96 02/01/20 10:50 100 25 H 100/65 98 02/01/20 10:40 96 34 H 90/57 96 02/01/20 10:13 97.5 F L 102 H 16 73/50 94 L 02/01/20 10:09 97.1 F L 98 18 73/50 97 02/01/20 08:02 93 L 02/01/20 07:59 98 18 81/56 88 L 02/01/20 07:19 96.4 F L 104 H 20 73/48 97 Intake and Output 02/01/20 02/01/20 02/01/20 06:59 14:59 22:59 Intake Total 1728.891 Output Total 975 Balance 753.891 Intake: Intake, IV Titration 1728.891 Amount Norepinephrine 4 mg In 23.891 Sodium Chloride 0.9% 250 ml @ 0.05 MCG/KG/MIN 10. 024 mls/hr IV .Q24H [facility] Rx#:[id number] Sodium Chloride 0.9% 1, 1455 000 ml @ 130 mls/hr IV . Q7H42M [facility] Rx#:[id number] Vancomycin 1,000 mg In 250 Sodium Chloride 0.9% 250 ml @ 125 mls/hr IVPB ONCE STA Rx#:[id number] Output: Urine 975 Other: Voiding Method Indwelling Catheter Weight 58.7 kg GENERAL DESCRIPTION: Middle-aged female lying in bed, no distress. No tachypnea or accessory muscle of respiration use. HEENT: Shows Pallor , no scleral icterus. Oral mucous membrane is dry. NECK: Trachea central, no thyromegaly. LUNGS: Unlabored breathing. Decreased breath sound at the base. No wheeze or crackle. HEART: S1, S2, regular rate and rhythm. ABDOMEN: Soft, mildly distended and tenderness ,no guarding or rigidity EXTREMITIES: No edema of feet. SKIN: No rash, no masses palpable. NEUROLOGICAL: The patient is awake, alert, oriented x3, mood and affect normal. Results CBC & Chem 7: 02/01/20 07:42 02/01/20 19:13 Labs: Abnormal Lab Results - Last 24 Hours (Table) 02/01/20 02/01/20 02/01/20 Range/Units 07:42 07:42 07:42 WBC 3.5 L (3.8-10.6) k/uL RBC 2.88 L (3.80-5.40) m/uL Hgb 8.1 L (11.4-16.0) gm/dL Hct 24.8 L (34.0-46.0) % RDW 21.7 H (11.5-15.5) % Plt Count 23 L D (150-450) k/uL Lymphocytes # 0.0 L (1.0-4.8) k/uL D-Dimer (<0.60) mg/L FEU VBG pH (7.31-7.41) VBG pCO2 (37-51) mmHg Sodium 123 L (137-145) mmol/L Chloride 92 L (98-107) mmol/L BUN 24 H (7-17) mg/dL Glucose 105 H (74-99) mg/dL POC Glucose (mg/dL) (75-99) mg/dL Plasma Lactic Acid Hany 3.2 H* (0.7-2.0) mmol/L Uric Acid (3.7-7.4) mg/dL Calcium 7.2 L (8.4-10.2) mg/dL Total Bilirubin 3.4 H (0.2-1.3) mg/dL AST 130 H (14-36) U/L ALT 73 H (4-34) U/L Alkaline Phosphatase 431 H (38-126) U/L Lactate Dehydrogenase 4617 H (313-618) U/L Creatine Kinase <20 L (30-135) U/L C-Reactive Protein (<10.0) mg/L Total Protein 4.2 L (6.3-8.2) g/dL Albumin 2.2 L (3.5-5.0) g/dL Amylase <30 L (30-110) U/L Lipase 15 L (23-300) U/L 02/01/20 02/01/20 02/01/20 Range/Units 07:42 07:42 07:42 WBC (3.8-10.6) k/uL RBC (3.80-5.40) m/uL Hgb (11.4-16.0) gm/dL Hct (34.0-46.0) % RDW (11.5-15.5) % Plt Count (150-450) k/uL Lymphocytes # (1.0-4.8) k/uL D-Dimer (<0.60) mg/L FEU VBG pH 7.47 H (7.31-7.41) VBG pCO2 34 L (37-51) mmHg Sodium (137-145) mmol/L Chloride (98-107) mmol/L BUN (7-17) mg/dL Glucose (74-99) mg/dL POC Glucose (mg/dL) (75-99) mg/dL Plasma Lactic Acid Hany (0.7-2.0) mmol/L Uric Acid 2.3 L (3.7-7.4) mg/dL Calcium (8.4-10.2) mg/dL Total Bilirubin (0.2-1.3) mg/dL AST (14-36) U/L ALT (4-34) U/L Alkaline Phosphatase (38-126) U/L Lactate Dehydrogenase (313-618) U/L Creatine Kinase (30-135) U/L C-Reactive Protein 58.4 H (<10.0) mg/L Total Protein (6.3-8.2) g/dL Albumin (3.5-5.0) g/dL Amylase (30-110) U/L Lipase (23-300) U/L 02/01/20 02/01/20 02/01/20 Range/Units 07:42 10:39 11:37 WBC (3.8-10.6) k/uL RBC (3.80-5.40) m/uL Hgb (11.4-16.0) gm/dL Hct (34.0-46.0) % RDW (11.5-15.5) % Plt Count (150-450) k/uL Lymphocytes # (1.0-4.8) k/uL D-Dimer 2.95 H (<0.60) mg/L FEU VBG pH (7.31-7.41) VBG pCO2 (37-51) mmHg Sodium (137-145) mmol/L Chloride (98-107) mmol/L BUN (7-17) mg/dL Glucose (74-99) mg/dL POC Glucose (mg/dL) 106 H (75-99) mg/dL Plasma Lactic Acid Hany 2.5 H* (0.7-2.0) mmol/L Uric Acid (3.7-7.4) mg/dL Calcium (8.4-10.2) mg/dL Total Bilirubin (0.2-1.3) mg/dL AST (14-36) U/L ALT (4-34) U/L Alkaline Phosphatase (38-126) U/L Lactate Dehydrogenase (313-618) U/L Creatine Kinase (30-135) U/L C-Reactive Protein (<10.0) mg/L Total Protein (6.3-8.2) g/dL Albumin (3.5-5.0) g/dL Amylase (30-110) U/L Lipase (23-300) U/L Assessment and Plan Assessment: patient presented to the hospital with abdominal pain in this patient who did have evidence of free air under the diaphragm with marked thickening of the small bowel and noticed on the CT I clinical concern for perforation of the small bowel with secondary peritonitis and will need to cover for the enteric gram-negative both aerobes and anaerobes currently no other obvious focus of infection no respiratory symptom or consolidation reported on the CT UA has been negative and evidence of any cellulitis (1) Sepsis Current Visit: Yes Status: Acute Code(s): A41.9 - SEPSIS, UNSPECIFIED ORGANISM SNOMED Code(s): 80112370 (2) Perforated abdominal viscus Current Visit: Yes Status: Acute Code(s): R19.8 - OTH SYMPTOMS AND SIGNS INVOLVING THE DGSTV SYS AND ABDOMEN SNOMED Code(s): 02780844 Plan: 1-Zosyn 3.375 g every 8 hour to continue however discontinue vancomycin to decrease risk of nephrotoxicity including suppression of her underlying gram- positive infection 2-IV fluid 3-surgical team is closely following for her perforated bowel and timing of surgery We will follow on clinical condition and cultures to further adjust medication if needed Thank you for this consultation we will follow the patient along with you Time with Patient: Greater than 30
[2020-02-02 02:33] LABS: Anisocytosis Moderate; Basophils % (A) 1 %; Eosinophils % (A) 1 %; HCT 23.4 % (34.0-46.0); HGB 7.3 gm/dL (11.4-16.0); Hypochromasia Slight; Lymphocytes % (A) 1 %; MCH 28.4 pg (25.0-35.0); MCHC 31.4 g/dL (31.0-37.0); MCV 90.5 fL (80.0-100.0); Macrocytosis Slight; Monocytes # (A) 0.1 k/uL (0-1.0); Monocytes % (A) 3 %; Neutrophils # (A) 2.8 k/uL (1.3-7.7); Neutrophils % (A) 92 %; RBC 2.58 m/uL (3.80-5.40); RDW 22.1 % (11.5-15.5)
[2020-02-02] MEDS: HYDROmorphone 1 MG/ML 1 ML SYRINGE IVP PRN ×4 (02:34→17:17)
[2020-02-02 02:36] LABS: Platelet Count 18 k/uL (150-450)
[2020-02-02] MEDS: NOREPINEPHRINE 4 MG in SODIUM CHLORIDE 0.9% 250 ML IV SCH ×2 (02:38→17:16)
[2020-02-02 02:48] LABS: African American GFR (CKD) >90 (>60 ml/min/1.73 sqM); Anion Gap 5 mmol/L; Blood Urea Nitrogen 13 mg/dL (7-17); Calcium 6.5 mg/dL (8.4-10.2); Carbon Dioxide 19 mmol/L (22-30); Chloride 107 mmol/L (98-107); Glucose 67 mg/dL (74-99); Non-African American GFR(CKD) >90 (>60 ml/min/1.73 sqM); Potassium 3.9 mmol/L (3.5-5.1); Sodium 131 mmol/L (137-145)
[2020-02-02 03:06] LABS: Glucose,Whole Blood 90 mg/dL (75-99)
[2020-02-02 05:44] LABS: Glucose,Whole Blood 82 mg/dL (75-99)
[2020-02-02] MEDS: SODIUM CHLORIDE 0.9% 1,000 ML IV SCH ×2 (08:19→17:15)
[2020-02-02] MEDS: ONDANSETRON 4 MG/2 ML VIAL IVP PRN ×3 (08:19→17:56)
[2020-02-02] MEDS: PIPERACILLIN-TAZOBACTAM 3.375 GM in SODIUM CHLORIDE 0.9% 100 ML IVPB SCH ×2 (08:21→15:32)
[2020-02-02 09:44] VITALS: BMI 27.2
[2020-02-02 10:40] LABS: Glucose,Whole Blood 95 mg/dL (75-99)
[2020-02-02 11:59] LABS: Glucose,Whole Blood 88 mg/dL (75-99)
--- NOTE | 2020-02-02 12:23 | CDI ---
Documentation Clarification Form Date: 02/02/2020 11:59:00 AM From: Nataliia Bueno RN, CCDS Admit Date: 02/01/2020 09:24:00 AM Patient Name: Chely Rodriguez Visit Number: [id number] ATTENTION: The Clinical Documentation Specialists (CDI) and [facility] Coding Staff appreciate your assistance in clarifying documentation. Please respond to the clarification below the line at the bottom and electronically sign. The CDI & [facility] Coding staff will review the response and follow-up if needed. Please note: Queries are made part of the Legal Health Record. If you have any questions, please contact the author of this message via ITS. Dr. Kostas Galaviz Cachexia and emaciation have been documented in a patient with a 17lb weight loss in less than 1 month, please provide further specificity. History/Risk Factors: Hodgkins lymphoma, Pancytopenia form NHL, chronic nicotine dependence, Clinical Indicators: 01/31 Pulmonary Consult: "History of present illness: She looks cachectic and emaciated and malnourished. The patient is a cachectic thin frail elderly female patient looks well although than her stated age and she has a BMI of 22.7." 01/31 H&P: "Patient progressively has had decreased appetite and weight loss nor is a bowel movement every day or every other day." 01/31 Oncology Consult: "However, she continued to complain of feeling very weak, progressive weight loss, exertional dyspnea, has epigastric pain and discomfort when she eats, nausea, in wheelchair, overall, and at last visit she states these symptoms are "just getting worse" 01/31-02/01 Labs: NA+ 130/131, Ca+ 6.5, total protein 4.2, Albumin 2.2 Current BMI: 27.2 +1 bilateral lower extremity edema, +2 bilateral pedal edema per nursing assessments Treatment: 02/01 Dietary Consult: "unintended weight loss of 17lbs in less than 1 month Supplements: "As needed or desired" Lab monitoring: AM Daily In your professional opinion, can you please clarify if these findings signify one of the following conditions? Moderate Protein-Calorie Malnutrition Severe Protein-Calorie Malnutrition Other condition, please specify Unable to determine __Moderate-protein calorie malnutrition, POA MTDD
[2020-02-02 12:43] LABS: Ferritin >16500.0 ng/mL (22.0-322.0)
--- NOTE | 2020-02-02 14:03 | P.PN ---
Subjective Progress Note Date: 02/02/20 Principal diagnosis: Acute surgical abdomen and non-Hodgkin's lymphoma This is a 64-year-old female patient with a recent diagnosis of a high-grade T- cell non-Hodgkin's lymphoma. The patient's initially was having epigastric abdominal discomfort that started around October 2019. Subsequent follow-up in December 2019 showed that the patient had abnormal liver function tests with an alkaline phosphatase of 1038 and ALT of 297 and AST of 199 and the CBC showed leukopenia and thrombocytopenia. Ultrasound the abdomen that was done on 12/24/2019 revealed splenomegaly and abnormal thickening of the gallbladder wall with adenopathy in the brannon hepatis. Subsequent CAT scan of the abdomen that was done on 12/26/2019 showed adenopathy in her abdomen up to 1.7 cm into portal caval area and atypical appearance of the gallbladder and splenomegaly. Subsequent PET scan on 01/09/2020 showed extensive uptake in the bilateral neck lymph nodes waldeyer ring, and abdominal lymph nodes. A biopsy of the lymph node that was done at [facility] showed T-cell lymphoma, PTCI versus angioimmun oblastic. The patient was having progressive weakness, excessive weight loss, exertional dyspnea and epigastric pain and discomfort in addition to nausea. She was in a wheelchair. Her performance status was poor. Her BMI was 21.3. Based on this, discussion was done with the sister and based on the aggressive behavior of this lymphoma, chemotherapy was recommended with understanding that the patient has a poor status and she may not tolerate the treatment well. A midline was inserted. Echocardiogram was done that showed no evidence of any significant LV dysfunction and a based on the echo the patient an ejection fraction of 55-60% and there was no evidence of any significant pericardial effusion and the pulmonary artery pressures are not elevated. As the patient was being prepared for systemic chemotherapy, she developed worsening abdominal pain and she came in today emergency department today because of significant abdominal pain. On examination she has direct tenderness. She is also nauseated. She looks cachectic and emaciated and malnourished. No reported fever. Her pain is rather diffuse. No hematuria. No melena. No bright red per rectum. A CAT scan of the abdomen and pelvis and the chest was done in the emergency department and showed interval development of bilateral pleural effusion and ascites. There is splenomegaly. There is marked small bowel wall thickening and questionable tiny air bubbles of free air is also described in the abdomen. Minimal groundglass changes in the lungs. There is also a small area of decreased function in the anterior aspect of the left kidney which raises the suspicion for pyelonephritis. UA is pending for now. There is evidence of uncomplicated diverticulosis involving the sigmoid colon. There are degenerative changes in the spine. The patient was given 1/2 L of IV fluids. She continued to be hypotensive in the burst department. She was started on norepinephrine infusion which is running at 0.04 mg per KG per minute. She was started on the comminution of Zosyn and vancomycin. She was transferred to the ICU for further monitoring. She looks quite ill. She has been a poor historian. She has a white cell count of 3.5 with a hemoglobin of 8.1. Her platelet count is down to 23. Her sodium level is at 123, chloride is 92, the bilirubin is at 3.4 with a AST of 1:30, ALT of 73, alkaline phosphatase of 431, LDH of 4617, CRP of 58, total protein of 4.2 with an albumin of 2.2, her uric acid level is at 2.3. Lactic acid level is at 3.2. Amylase and lipase are within normal. UA is negative. Glucose is 106. Patient was reevaluated today on 02/02/20, patient remains in the ICU, complaining of vague abdominal pain. Patient seems to be a bit restless, agitated, she is requiring IV fluid at 13 0 mL/h, is also on norepinephrine at 0.07 mcg/kg/m. Apparently over the last 24 hours, her CODE STATUS was changed to DO NOT RESUSCITATE and plans are in progress to send the patient home with hospice. Patient was seen by surgery for her acute surgical abdomen, and was not felt to be a good surgical candidate. Hence discharge planning with hospice on board are in progress. Objective - Vital Signs Vital signs: Vital Signs Temp 35.5 F L 02/02/20 10:00 Pulse 96 02/02/20 10:15 Resp 9 L 02/02/20 10:15 BP 88/57 02/02/20 10:15 Pulse Ox 93 L 02/02/20 10:15 Intake & Output 02/01/20 02/02/20 02/02/20 18:59 06:59 18:59 Intake Total 3348.891 1595.76 520 Output Total 1775 890 215 Balance 1573.891 705.76 305 Weight 58.7 kg 63.2 kg 63.2 kg Intake: Intake, IV Titration 3348.891 1495.76 520 Amount Norepinephrine 4 mg In 23.891 195.76 Sodium Chloride 0.9% 250 ml @ 0.05 MCG/KG/MIN 10. 024 mls/hr IV .Q24H [facility] Rx#:[id number] Piperacillin-Tazobactam 3 100 100 .375 gm In Sodium Chloride 0.9% 100 ml @ 200 mls/hr IVPB ONCE STA Rx#:[id number] Piperacillin-Tazobactam 3 100 .375 gm In Sodium Chloride 0.9% 100 ml @ 25 mls/hr IVPB Q8HR [facility] Rx# :[id number] Potassium Chloride 10 meq 850 520 In Water For Injection 1 100ml.bag @ 100 mls/hr IVPB Q1H [facility] Rx#: [id number] Sodium Chloride 0.9% 1, 1975 000 ml @ 130 mls/hr IV . Q7H42M [facility] Rx#:[id number] Sodium Chloride 0.9% 1, 1000 000 ml @ 999 mls/hr IV . Q1H1M [facility] Rx#:[id number] Vancomycin 1,000 mg In 250 Sodium Chloride 0.9% 250 ml @ 125 mls/hr IVPB ONCE STA Rx#:[id number] Vancomycin 1,000 mg In 250 Sodium Chloride 0.9% 250 ml @ 125 mls/hr IVPB Q8H [facility] Rx#:[id number] Oral 100 Output: Urine 1775 890 215 Other: Voiding Method Indwelling Catheter Indwelling Catheter Indwelling Catheter - Exam Physical Exam: Revealed a 64-year-old female cachectic looking, frail, chronically ill. Head: Atraumatic, normocephalic. HEENT:[Neck is supple.] [No neck masses.] [No thyromegaly.] [No JVD.] Chest: [Clear throughout, no crackles, no rhonchi, no wheezes.] Cardiac Exam: [Normal S1 and S2, no S3 gallop, no murmur.] Abdomen: Tender, no rebound, no guarding, diminished bowel sounds. Extremities: [No clubbing, 1+ bipedal edema, no cyanosis.] Neurological Exam: [No focal neurologic deficit.] Alert and oriented 3. Skin: No rashes. - Labs CBC & Chem 7: 02/02/20 02:04 02/02/20 02:04 Labs: Abnormal Lab Results - Last 24 Hours (Table) 02/01/20 02/01/20 02/01/20 Range/Units 07:42 15:36 19:13 WBC (3.8-10.6) k/uL RBC (3.80-5.40) m/uL Hgb (11.4-16.0) gm/dL Hct (34.0-46.0) % RDW (11.5-15.5) % Plt Count (150-450) k/uL Lymphocytes # (1.0-4.8) k/uL Sodium 130 L (137-145) mmol/L Carbon Dioxide 19 L (22-30) mmol/L Creatinine 0.34 L (0.52-1.04) mg/dL Glucose (74-99) mg/dL Plasma Lactic Acid Hany 2.2 H* (0.7-2.0) mmol/L Calcium 6.5 L (8.4-10.2) mg/dL Ferritin >26217.0 H (22.0-322.0) ng/mL 02/02/20 02/02/20 Range/Units 02:04 02:04 WBC 3.0 L (3.8-10.6) k/uL RBC 2.58 L (3.80-5.40) m/uL Hgb 7.3 L (11.4-16.0) gm/dL Hct 23.4 L (34.0-46.0) % RDW 22.1 H (11.5-15.5) % Plt Count 18 L* (150-450) k/uL Lymphocytes # 0.0 L (1.0-4.8) k/uL Sodium 131 L (137-145) mmol/L Carbon Dioxide 19 L (22-30) mmol/L Creatinine 0.32 L (0.52-1.04) mg/dL Glucose 67 L (74-99) mg/dL Plasma Lactic Acid Hany (0.7-2.0) mmol/L Calcium 6.5 L (8.4-10.2) mg/dL Ferritin (22.0-322.0) ng/mL Microbiology - Last 24 Hours (Table) 02/01/20 11:37 Blood Culture - Preliminary Blood No Growth after 24 hours 02/01/20 09:06 Blood Culture - Preliminary Blood No Growth after 24 hours Assessment and Plan Assessment: Impression: Non-Hodgkin's lymphoma Acute surgical abdomen Splenomegaly secondary to above. Pancytopenia secondary to non-Hodgkin's lymphoma Hypochloremic hyponatremia Ascites secondary to above. Recommendation: Considering the patient is not a surgical candidate and considering her prognosis is extremely poor, agree with hospice plans. In the meantime continue present supportive and comfort care measures. Will follow on when necessary basis. Time with Patient: Less than 30
--- NOTE | 2020-02-02 14:20 | PN ---
PROGRESS NOTE DATE OF SERVICE: 02/02/2020 REASON FOR FOLLOW UP: Secondary peritonitis from perforated bowel. INTERVAL HISTORY: The patient is slightly hypothermic, though the patient is awake, alert. She is breathing comfortably. Denies having any chest pain. Abdominal pain has improved. Some nausea but no vomiting and no other symptoms. PHYSICAL EXAMINATION: Blood pressure 82/57, pulse of 96, temperature 35.5. She is 93% on 3 L nasal cannula. General description is a middle-aged female lying in bed in no distress.. RESPIRATORY SYSTEM: Unlabored breathing, clear to auscultation anteriorly. HEART: S1, S2. Regular rate and rhythm. ABDOMEN: Soft, no tenderness. LABS: Hemoglobin 7.8, white count 3.0, BUN of 13, creatinine 0.32. Blood culture has been negative. DIAGNOSTIC IMPRESSION AND PLAN: Patient with sepsis from perforated bowel mixed with underlying lymphoma. Covered with Zosyn. Family is considering hospice, may be appropriate. Antibiotic can be discontinued on discharge. Continue supportive care. MMODL / IJN: [id number] /
[2020-02-02 16:22] LABS: Hemoglobin A1C 4.2 % (4.0-6.0)
[2020-02-02] MEDS ORDERED: VANCOMYCIN TROUGH DUE 1 EACH MISC MISCELLANE ONE (17:00)
[2020-02-02 18:09] VITALS: BP 96/65; PULSE 108; RESP 34; TEMP 97.7
--- NOTE | 2020-02-02 20:05 | P.DS ---
Providers Date of admission: 02/01/20 09:24 Expected date of discharge: 02/02/20 Attending physician: Kostas Galaviz Consults: 02/01/20 09:31 Consult Physician Stat Consulting Provider: Wali Ya Consult Reason/Comments: ICU management Do you want consulting provider notified?: Already Contacted Consult Physician Urgent Consulting Provider: Cordell Doll Consult Reason/Comments: Lymphoma Do you want consulting provider notified?: Already Contacted 02/01/20 12:22 Consult Physician Routine Consulting Provider: Dawit Quijano Consult Reason/Comments: SARs/Sepsis/Lymphoma Do you want consulting provider notified?: Yes Primary care physician: [facility] Course: Chief Complaint: Abdominal pain History of presenting complaint: This is a pleasant 64-year-old patient of Dr. Lopes. Patient has been diagnosed non-Hodgkin's lymphoma by Dr. Goodman. Patient is due to start chemotherapy next week. Patient progressively has had decreased appetite and weight loss nor is a bowel movement every day or every other day. For the last 2 days ago started having progressively severe abdominal pain Central is no obvious nausea vomiting. For last 2 days had that dark bowel movement. There is no fever or chills. Pain was rather severe to the point of nearly doubling up. Presented to the ER. Computed tomography scan the ER showed some tiny bubble of free air that was questionable. Also small small bowel wall thickening in addition to bilateral effusions and ascites splenomegaly sigmoid diverticulosis. Patient was hypotensive and therefore moved to the ICU. Started antibiotics and levo fed. Patient rather tired and rundown. Dr. Zavala was contacted from the ER about the acute abdomen and so was low raw sugar cutter. Admitted with suspected bowel perforation with sepsis, hypotensive shock, septic shock. To the ICU. Today-patient and family in bed fully and decided to proceed with hospice at home. Spoke to the hospice nurse. Spoke to the patient nurse. Patient be discharged home later today. Hospice company making arrangements. Patient is having some nausea and abdominal pain Discussion and discharge planning more than 35 minutes Consultation: Dr. Robles from oncology Dr. Ya from critical care Dr. Parrish from general surgery Physical examination: VITAL SIGNS: 36.8, 103, 11, 80/60, 35% GENERAL: Sitting up in bed slightly uncomfortable EYES: Pupils equal. Conjunctiva palel. HEENT: External appearance of nose and ears normal, oral cavity grossly normal. NECK: JVD unable to assess; masses not palpable. HEART: First and second heart sounds are normal; no edema. LUNGS: Respiratory rate increased; decreased breath sounds. ABDOMEN: Soft, diffusely tender, slight guarding no rigidity, liver spleen not palpable, questionable masses palpable. PSYCH: Alert and oriented x3; mood and affect anxiousl. INVESTIGATIONS, reviewed in the clinical context: White count 3 hemoglobin 7.3 platelets 18 potassium 3.9 crit 0.3 to Previous testing White count 3.5 hemoglobin 8.1 platelets 23 pro time 10.3 potassium 4.3 sodium 123 bun 44 creatinine 0.57 and lactic acid 3.2 Total bilirubin 3.4 AST 1:30 ALT 73 LDH 4617 troponin I less than 0.012 CRP 58.4 albumin 2 lipase 15 UA negative EKG tracing personally reviewed by me-sinus rhythm Acute abdominal series films personally reviewed by me-shows free air under the right diaphragm and possible infiltrates Computed tomography scan of the chest abdomen pelvis-moderate bilateral effusions, atelectasis, multifocal groundglass appearance in both lungs, marked splenomegaly, extensive per aortic and paracaval adenopathy, sigmoid diverticulosis, thick-walled and dilated small bowel in the mid abdomen Assessment: -Probable perforated bowel with secondary peritonitis -Non-Hodgkin's lymphoma with significant lymphadenopathy and splenomegaly -Pancytopenia from NHL -Chronic nicotine dependence patient cigarette smoker -COPD in a current smoker -Hypovolemic, hyponatremia -Hyportensive shock, possibly also septic shock from likely perforated bowel and possibly secondary peritonitis Plan: Home with hospice Patient Condition at Discharge: Poor Plan - Discharge Summary Discharge Rx Participant: Yes New Discharge Prescriptions: Discontinued Tolterodine ER [Detrol LA] 2 mg PO BID Multivit,Ca,Min/D3/Herbal #181 [Estroven (Day or Night)] 1,000 unit PO DAILY Eszopiclone [Lunesta] 3 mg PO HS Follow up Appointment(s)/Referral(s): Taqueria Lopes DO [Primary Care Provider] - 1-2 days (Patient is [facility] who will be in charge of her care) Patient Instructions/Handouts: Hospice (DC) Discharge Disposition: HOME WITH HOSPICE
== END 2020-02-02 18:15 | disposition hospice, home (50) | DRG 871 ==
LOC: EC 07:11 → 2SICU 09:24
PROVIDERS: ADMIT Hospitalist; ATTEND Hospitalist
DX: A41.9 Sepsis, unspecified organism (principal); K63.1 Perforation of intestine (nontraumatic); K65.9 Peritonitis, unspecified; R57.1 Hypovolemic shock; R65.21 Severe sepsis with septic shock; C85.98 Non-Hodgkin lymphoma, unspecified, lymph nodes of multiple sites; D61.818 Other pancytopenia; E87.1 Hypo-osmolality and hyponatremia; J90 Pleural effusion, not elsewhere classified; R18.8 Other ascites; R64 Cachexia; E87.8 Other disorders of electrolyte and fluid balance, not elsewhere classified; F17.210 Nicotine dependence, cigarettes, uncomplicated; I10 Essential (primary) hypertension; J44.9 Chronic obstructive pulmonary disease, unspecified; K57.30 Diverticulosis of large intestine without perforation or abscess without bleeding; M06.9 Rheumatoid arthritis, unspecified; R16.1 Splenomegaly, not elsewhere classified; R10.0 Acute abdomen; R74.0 Nonspecific elevation of levels of transaminase and lactic acid dehydrogenase [LDH]; Z11.59 Encounter for screening for other viral diseases; Z66 Do not resuscitate; Z79.899 Other long term (current) drug therapy; Z86.010 Personal history of colon polyps; Z82.0 Family history of epilepsy and other diseases of the nervous system; Z83.3 Family history of diabetes mellitus; Z82.61 Family history of arthritis
CPT/HCPCS: 36415; 71260; 74022; 74177; 80048; 80053; 81003; 82150; 82550; 82728; 82803; 83036; 83605; 83615; 83690; 83735; 84145; 84484; 84550; 85025; 85379; 85610; 85730; 86140; 87040; 87635; 93005; 96361; 96365; 96374; 99291